=== PATIENT | male | born 1955 | race Caucasian/White ===

== ENCOUNTER 2023-04-30 20:34 | Emergency (ER) | payer BC, SELFPAY ==
--- NOTE | 2023-04-30 21:16 | PC.NURSE ---
called pt for triage at 2099, no answer. called pt again at 2114. no answer.
== END 2023-04-30 21:16 | disposition left against medical advice (07) ==
LOC: ANHED 21:21
PROVIDERS: PCP Internal Medicine
DX: Z53.21 Procedure and treatment not carried out due to patient leaving prior to being seen by health care provider (principal)
CPT/HCPCS: 99199

== ENCOUNTER 2023-04-30 22:34 | Emergency (ER) | payer BC, SELFPAY ==
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
[2023-04-30 22:56] VITALS: BP 124/96; PULSE 67; RESP 18; TEMP 36.6; O2SAT 97
[2023-05-01 01:47] VITALS: BP 143/103; PULSE 55; RESP 15; TEMP 36.8; O2SAT 98
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
[2023-05-01 03:19] VITALS: BP 137/97; PULSE 84; RESP 14; TEMP 36.6; O2SAT 98
== END 2023-05-01 03:20 | disposition home or self-care (01) ==
PROVIDERS: Emergency Provider Emergency Medicine; PCP Internal Medicine
DX: S61.412A Laceration without foreign body of left hand, initial encounter (principal); V18.4XXA Pedal cycle driver injured in noncollision transport accident in traffic accident, initial encounter; Y93.55 Activity, bike riding
CPT/HCPCS: 12001; 73130; 99283

== ENCOUNTER 2024-11-13 11:22 | Emergency (ER) | payer BC, SELFPAY ==
--- NOTE | ~2024-11-13 | US_ITS ---
EXAMINATION: US soft tissue LE RT DATE: 11/13/2024 13:14 INDICATION: Posterior right thigh pain. Injury. TECHNIQUE: Multiple grayscale and Doppler ultrasound images of the right lower limb were obtained. COMPARISON: None FINDINGS: There is no hematoma in the patient's area of concern in distal right posterior thigh. IMPRESSION: 1. No hematoma in the patient's area of concern in distal right posterior thigh. Reviewed, dictated and finalized at location A. CUTTER IMPRESSION: 1. No hematoma in the patient's area of concern in distal right posterior thigh .
[2024-11-13 11:34] VITALS: BP 146/95; TEMP 36.3
--- OUTSIDE RECORDS SUMMARY | 2024-11-13 12:42 | XMS_ITS | Encounter Summary ---
Author Organization [facility] Address [address] [place] [address] Care Team Providers Care Web Solutions Architect Name Role Phone Donald Guerrero MD Primary Care Provider Encounter Details Date Type Department Care Team (Late st Contact Info) Description 10/11/2007 Orders Only [facility] Primary Care - [address] [place] [address] Sarbjit Benson MD [address] [facility] [address] [place] [address] Social History Tobacco Use Types Packs/Day Years Used Date Smoking Tobacco: Never Assessed Sex and Gender Information Value Date Recorded Sex Assigned at Not on file Legal Sex Male 4:28 AM RESEARCH SPEC Gender Identity Not on file Sexual Orientation Not on file documented as of this encounter Progress Notes * Sarbjit eBnson MD - 02/14/2008 5:57 PM CDT TIME:09:37 am PATIENT`S HOME PHONE: PATIENT`S WORK PHONE: PATIENT`S INSURANCE: [facility] WHO TOOK THE CALL: Rosa Maria Dyer W GENERAL INFORMATION PATIENT STATUS: Established Patient. LAST VISIT: 06/13/07 PCP: sofia. ALTERNATIVE PHONE NUMBER: [phone] WHO CALLED: Patient called. CURRENT ALLERGY LIST: [facility] NUMBER:[phone] PROBLEMS: CONGESTION: Patient complains of chest congestion. thick & discolored, low grade temp COUGH:The symptoms began approximately 4 days ago. SECTION 1: REQUESTED ACTION w 10/11/07 at 09:40 am: MEDICATION REQUEST: wants rx................SS DOCTOR`S RESPONSE: cheryl 10/11/07 at 10:11 am MEDICATIONS: Call in to Pharmacy ZITHROMAX Z-AGUSTÍN ORAL TABLET 250 MG, as directed, 1 Dispensed, status: NEW PRESCRIPTION, 10/11/2007. FINAL ACTION: frankw 10/11/07 at 12:57 pm Spoke with patient 10/11/07 at 12:57 pm. Called pharmacy at 10/11/07 at 12:57 pm. SS Electronically Signed by: Rosa Maria Dyer on Thursday, October 11, 2007 documented in this encounter Plan of Treatment Upcoming Encounters Date Type Department Care Team (Late st Contact Info) Description 11/27/2024 1:00 PM RESEARCH SPEC Office Visit [facility] [address] [facility] [address] [place] [id number] Yee Banegas NP [address] [facility] [address] [place] [address] 03/08/2025 12:45 PM CDT Office Visit [facility] - [facility] [address] [facility] [address] [place] [address] Kevin Ashley MD [address] [facility] [address] [place], [place] [id number] documented as of this encounter Visit Diagnoses Not on filedocumented in this encounter Care Teams Web Solutions Architect Relationship Specialty Start Date End Date Donald Guerrero MD [address] [place] [address]. [address] [place] [address] PCP - General Internal Medicine 09/23/20 documented as of this encounter
--- OUTSIDE RECORDS SUMMARY | 2024-11-13 12:42 | XMS_ITS | Encounter Summary ---
Author Organization [facility] Address 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 Gender Identity Not on file Sexual Orientation Not on file documented as of this encounter Plan of Treatment Upcoming Encounters Date Type Department Care Team (Late st Contact Info) Description 11/27/2024 1:00 PM FORMULATOR COMPOUNDER Office Visit [facility] [address] [place] [address] Yee Banegas NP [address] [facility] [address] [place] [address] 03/08/2025 12:45 PM CDT Office Visit [facility] Heart [facility] - [facility] [address] [place] [address] Kevin Ashley MD [address] [facility] [address] [place] [address] documented as of this encounter Visit Diagnoses Not on filedocumented in this encounter Care Teams Rf Technician Relationship Specialty Start Date End Date Donald Guerrero MD [address] [place] [address] [address] [place] [address] PCP - General Internal Medicine 09/23/20 documented as of this encounter
--- OUTSIDE RECORDS SUMMARY | 2024-11-13 12:42 | XMS_ITS | Encounter Summary ---
Author Organization [facility] Address [address] [place] [address] Care Team Providers Care Field Control Inspector Name Role Phone Donald Guerrero MD Primary Care Provider Reason for Visit * Reason Comments Med Refill Encounter Details Date Type Department Care Team (Late st Contact Info) Description 11/13/2024 Refill [facility] Orthopedic Surgery at the [facility] [address] [place] [address] Kenrick Lemon PA-C [address] [place], [place] [id number] Social History Tobacco Use Types Packs/Day Years Used Date Smoking Tobacco: Never Passive Smoke Exposure: Never Smokeless Tobacco: Never Alcohol Use Standard Drinks/Week Comments Yes 7 (1 standard drink = 0.6 oz pur e alcohol) 1-2 beers/day Feeling Safe Answer Date Recorded Are you in a relationship wi th someone who hurts you emotionally and/or physically? No 12/03/2022 Food Insecurity Answer Date Recorded Social/Environmental Concerns No concerns Transportation Needs Answer Date Record ed Social/Environmental Concerns No concerns Housing Stability Answer Date Recorded Social/Environmental Concerns No concerns Utility Needs Answer Date Recorded Social/Environmental Concerns No concerns Sex and Gender Information Value Date Recorded Sex Assigned at Not on file Legal Sex Male 4:28 AM MOVIE ACTOR Gender Identity Not on file Sexual Orientation Not on file Occupation Industry Job Start Date Job End Date Not on file Not on file Not on file Not on file documented as of this encounter Plan of Treatment Upcoming Encounters Date Type Department Care Team (Late st Contact Info) Description 11/27/2024 1:00 PM MOVIE ACTOR Office Visit [facility] [place] [facility] [place] [place] [address] [facility] [address] [place] [address] Yee Banegas, IGOR [address] [facility] [address] [place] [address] 03/08/2025 12:45 PM CDT Office Visit [facility] [place] [facility] [place] [address] [facility] [address] [place] [address] Kevin Ashley MD [address] [facility] [address] [place] [address] documented as of this encounter Visit Diagnoses Not on filedocumented in this encounter Care Teams Field Control Inspector Relationship Specialty Start Date End Date Donald Guerrero MD [address] [place] [address]. [address] [place] [address] PCP - General Internal Medicine 09/23/20 documented as of this encounter
--- OUTSIDE RECORDS SUMMARY | 2024-11-13 12:42 | XMS_ITS | Encounter Summary ---
Author Organization [facility] Address [address] [place] [address] Care Team Providers Care Head Refrigeration Engineer Name Role Phone Donald Guerrero MD Primary Care Provider Reason for Visit * Reason Comments Med Refill Encounter Details Date Type Department Care Team (Late st Contact Info) Description 11/13/2024 Refill [facility] Heart and Vascular At [place] [address] [facility] [address] [place] [address] Kevin Ashley MD [facility] [address] [facility] [address] [place], [place] [id number] Social History Tobacco Use Types Packs/Day Years [...] on file Legal Sex Male 4:28 AM PHOTO TECHNICIAN Gender Identity Not on file Sexual Orientation Not on file Occupation Industry Job Start Date Job End Date Not on file Not on file Not on file Not on file documented as of this encounter Plan of Treatment Upcoming Encounters Date Type Department Care Team (Late st Contact Info) Description 11/27/2024 1:00 PM PHOTO TECHNICIAN Office Visit [facility] Primary Care - [facility] [address] [facility] [address] [place] [address] Yee Banegas NP [address] [facility] [address] [place] [address] 03/08/2025 12:45 PM CDT Office Visit [facility] Heart and Vascular - [facility] [address] [facility] [address] [place] [address] Kevin Ashley MD [address] [facility] [address] [place] [address] documented as of this encounter Visit Diagnoses Not on filedocumented in this encounter Care Teams Head Refrigeration Engineer Relationship Specialty Start Date End Date Donald Guerrero MD [address] [facility] [place] [address] PCP - General Internal Medicine 09/23/20 documented as of this encounter
--- OUTSIDE RECORDS SUMMARY | 2024-11-13 12:42 | XMS_ITS | Encounter Summary ---
Author Organization [facility] Address [address] [place] [address] Care Team Providers Care Centrifugal Casting Machine Operator Name Role Phone Donald Guerrero MD Primary Care Provider Encounter Details Date Type Department Care Team (Late st Contact Info) Description 09/03/1998 Outpatient Historical [facility] [address] [facility] [address] [place] [address] Armando Murdock MD NO ADDRESS ON FILE Social History Tobacco Use Types Packs/Day Years Used Date Smoking Tobacco: Never Assessed Sex and Gender Information Value Date Recorded Sex Assigned at Not on file Legal Sex Male 4:28 AM HOME HEALTH ASSISTANT Gender Identity Not on file Sexual Orientation Not on file documented as of this encounter Plan of Treatment Upcoming Encounters Date Type Department Care Team (Late st Contact Info) Description 11/27/2024 1:00 PM HOME HEALTH ASSISTANT Office Visit [facility] [address] [place] [address] Yee Banegas NP [address] [facility] [address] [place] [address] 03/08/2025 12:45 PM CDT Office Visit [facility] Heart and Vascular - [facility] [address] [place] [address] Kevin Ashley MD [address] [facility] [address] [place] [address] documented as of this encounter Visit Diagnoses Not on filedocumented in this encounter Care Teams Centrifugal Casting Machine Operator Relationship Specialty Start Date End Date Donald Guerrero MD [address] [place] [address] [address] [place] [address] PCP - General Internal Medicine 09/23/20 documented as of this encounter
--- OUTSIDE RECORDS SUMMARY | 2024-11-13 12:42 | XMS_ITS | Encounter Summary ---
Author Organization [facility] Address [address] [place] [address] Care Team Providers Care Clinical Trials Data Coordinator Name Role Phone Donald Guerrero MD Primary Care Provider Encounter Details Date Type Department Care Team (Late st Contact Info) Description 08/07/2007 Orders Only [facility] Primary Care - [address] [place] [address] Sarbjit Benson MD [address] [facility] [address] [place] [address] Social History Tobacco Use Types Packs/Day Years Used Date Smoking Tobacco: Never Assessed Sex and Gender Information Value Date Recorded Sex Assigned at Not on file Legal Sex Male 4:28 AM OUT OF SCHOOL HOURS CARE WORKER Gender Identity Not on file Sexual Orientation Not on file documented as of this encounter Progress Notes * Sarbjit Benson MD - 02/15/2008 4:26 PM CDT TIME:10:02 am PATIENT`S HOME PHONE: PATIENT`S WORK PHONE: PATIENT`S INSURANCE: [email or web address] [facility] WHO TOOK THE CALL: Rosa Maria Dyer W GENERAL INFORMATION PATIENT STATUS: Established Patient. LAST VISIT: 06-13-07 PCP: Marcelino WHO CALLED: Patient called. ALTERNATIVE PHONE NUMBER: [phone] CURRENT ALLERGY LIST: [facility] PHARM[facility]Y NUMBER: [phone] PROBLEM LIST: Patient complains of. erectile dysfunction. SECTION 1: REQUESTED ACTION isidra 08/07/07 at 10:04 am: would like to try rx. MEDICATION REQUEST: MEDICATION REQUEST: Patient requests a refill. MEDICATIONS: NORVASC ORAL TABLET 5 MG, 1 Every Day, 90 Dispensed, 3 Fills, status: CONTINUED, 08/07/2007. ZOCOR ORAL TABLET 20 MG, 1 Every Day At Bedtime, 90 Dispensed, 3 Fills, status: CONTINUED, 08/07/2007. in hub for signature , mail to pt..............Rosa Maria DOCTOR`S RESPONSE: cheryl 08/07/07 at 10:09 am signed MEDICATIONS: NORVASC ORAL TABLET 5 MG, 1 Every Day, 90 Dispensed, 3 Fills, status: CONTINUED, 08/07/2007. VIAGRA ORAL TABLET 100 MG, 1/2 to 1 tab by mouth 30-60 minutes before sexual activity, 15 Dispensed, 3 Fills, status: NEW PRESCRIPTION, 08/07/2007. FINAL ACTION: haroon 08/07/07 at 01:27 pm Spoke with patient 08/07/07 at 01:27 pm. Called pharmacy at 08/07/07 at 01:27 pm. raul Electronically Signed by: Raul Clemente on Tuesday, August 07, 2007 * Sarbjit Benson MD - 02/15/2008 4:19 PM CDT TIME:03:01 pm PATIENT`S HOME PHONE: PATIENT`S WORK PHONE: PATIENT`S INSURANCE: [facility] WHO TOOK THE CALL: Raul Clemente GENERAL INFORMATION PATIENT STATUS: Established Patient. LAST VISIT: PCP: marcelino WHO CALLED: Pharmacy called. CURRENT ALLERGY LIST: [facility] PHARMACY NUMBER: [phone] SECTION 1: REQUESTED ACTION haroon 08/07/07 at 03:01 pm: MEDICATION REQUEST: [phone] MEDICATION REQUEST: Patient requests a refill. MEDICATIONS: VIAGRA ORAL TABLET 100 MG, 1/2 to 1 tab by mouth 30-60 minutes before sexual activity, 15 Dispensed, 3 Fills, status: NEW PRESCRIPTION, 08/07/2007. lf -----raul [facility] [id number], waiting on fax form pr form fxd pr FINAL ACTION: [email or web address] 08/10/07 at 04:00 pm Called pharmacy at 08/10/07 at 04:00 pm. med approved Electronically Signed by: Rosana Johnson on August documented in this encounter Plan of Treatment Upcoming Encounters Date Type Department Care Team (Late st Contact Info) Description 11/27/2024 1:00 PM OUT OF SCHOOL HOURS CARE WORKER Office Visit [facility] Primary Care - [facility] [address] [facility] [address] [place] [address] Yee Banegas NP [address] [facility] [address] [place] [address] 03/08/2025 12:45 PM CDT Office Visit [facility] Heart and Vascular - [facility] [place] [facility] [address] [facility] [address] [place] [address] Kevin Ashley MD [address] [facility] [address] [place] [address] documented as of this encounter Visit Diagnoses Not on filedocumented in this encounter Care Teams Clinical Trials Data Coordinator Relationship Specialty Start Date End Date Donald Guerrero MD [address] [facility] [place] [address] PCP - General Internal Medicine 09/23/20 documented as of this encounter
--- OUTSIDE RECORDS SUMMARY | 2024-11-13 12:42 | XMS_ITS | Encounter Summary ---
Author Organization [facility] Address [address] [place] [address] Care Team Providers Care Lap Machine Tender Name Role Phone Donald Guerrero MD Primary Care Provider Encounter Details Date Type Department Care Team (Late st Contact Info) Description 04/21/1999 Outpatient Historical [facility] [address] [facility] [address] [place] [address] Armando Murdock MD NO ADDRESS ON FILE Social History Tobacco Use Types Packs/Day Years Used Date Smoking Tobacco: Never Assessed Sex and Gender Information Value Date Recorded Sex Assigned at Not on file Legal Sex Male 4:28 AM COSMETIC MANAGER Gender Identity Not on file Sexual Orientation Not on file documented as of this encounter Plan of Treatment Upcoming Encounters Date Type Department Care Team (Late st Contact Info) Description 11/27/2024 1:00 PM COSMETIC MANAGER Office Visit [facility] [address] [place] [address] Yee Banegas NP [address] [facility] [address] [place] [address] 03/08/2025 12:45 PM CDT Office Visit [facility] Heart and Vascular - [facility] [address] [place] [address] Kevin Ashley MD [address] [facility] [address] [place] [address] documented as of this encounter Visit Diagnoses Not on filedocumented in this encounter Care Teams Lap Machine Tender Relationship Specialty Start Date End Date Donald Guerrero MD [address] [place] [address] [address] [place] [address] PCP - General Internal Medicine 09/23/20 documented as of this encounter
--- OUTSIDE RECORDS SUMMARY | 2024-11-13 12:42 | XMS_ITS | Encounter Summary ---
Author Organization [facility] Address [address] [place] [address] Care Team Providers Care Data Modeling Architect Name Role Phone Donald Guerrero MD Primary Care Provider Encounter Details Date Type Department Care Team (Late st Contact Info) Description 09/21/2002 Outpatient Historical [facility] [address] [facility] [address] [place] [address] Jayant Quesada Social History Tobacco Use Types Packs/Day Years Used Date Smoking Tobacco: Never Assessed Sex and Gender Information Value Date Recorded Sex Assigned at Not on file Legal Sex Male 4:28 AM INCOMING INSPECTOR Gender Identity Not on file Sexual Orientation Not on file documented as of this encounter Plan of Treatment Upcoming Encounters Date Type Department Care Team (Late st Contact Info) Description 11/27/2024 1:00 PM INCOMING INSPECTOR Office Visit [facility] [address] [place] [address] Yee Banegas NP [address] [facility] [address] [place] [address] 03/08/2025 12:45 PM CDT Office Visit [facility] Heart and Vascular - [facility] [address] [place] [address] Kevin Ashley MD [address] [facility] [address] [place] [address] documented as of this encounter Visit Diagnoses Not on filedocumented in this encounter Care Teams Data Modeling Architect Relationship Specialty Start Date End Date Donald Guerrero MD [address] [place] [address] [address] [place] [address] PCP - General Internal Medicine 09/23/20 documented as of this encounter
--- OUTSIDE RECORDS SUMMARY | 2024-11-13 12:42 | XMS_ITS | Encounter Summary ---
Author Organization [facility] Address [address] [place] [address] Care Team Providers Care Hose Sprayer Name Role Phone Donald Guerrero MD Primary Care Provider Encounter Details Date Type Department Care Team (Late st Contact Info) Description 02/02/2008 Outpatient Historical [address] [place] [address] Elda Mart MD [address] [place] [address] [place] [address] Social History Tobacco Use Types Packs/Day Years Used Date Smoking Tobacco: Never Assessed Sex and Gender Information Value Date Recorded Sex Assigned at Not on file Legal Sex Male 4:28 AM CNA PCT Gender Identity Not on file Sexual Orientation Not on file documented as of this encounter Plan of Treatment Upcoming Encounters Date Type Department Care Team (Late st Contact Info) Description 11/27/2024 1:00 PM CNA PCT Office Visit [facility] [address] [facility] [address] [place] [address] Yee Banegas NP [address] [facility] [address] [place] [address] 03/08/2025 12:45 PM CDT Office Visit [facility] Heart and Vascular - [facility] [address] [place] [address] Kevin Ashley MD [address] [facility] [address] [place] [address] documented as of this encounter Visit Diagnoses Not on filedocumented in this encounter Care Teams Hose Sprayer Relationship Specialty Start Date End Date Donald Guerrero MD [address] [place] [address] PCP - General Internal Medicine 09/23/20 documented as of this encounter
--- OUTSIDE RECORDS SUMMARY | 2024-11-13 12:42 | XMS_ITS | Encounter Summary ---
Author Organization [facility] Address [address] [place] [address] Care Team Providers Care Body Cleaner Name Role Phone Donald Guerrero MD Primary Care Provider Encounter Details Date Type Department Care Team (Late st Contact Info) Description 06/30/2000 Outpatient Historical [facility] [address] [facility] [address] [place] [address] Armando Murdock MD NO ADDRESS ON FILE Social History Tobacco Use Types Packs/Day Years Used Date Smoking Tobacco: Never Assessed Sex and Gender Information Value Date Recorded Sex Assigned at Not on file Legal Sex Male 4:28 AM PHOTOENGRAVING SUPERVISOR Gender Identity Not on file Sexual Orientation Not on file documented as of this encounter Plan of Treatment Upcoming Encounters Date Type Department Care Team (Late st Contact Info) Description 11/27/2024 1:00 PM PHOTOENGRAVING SUPERVISOR Office Visit [facility] [address] [place] [address] Yee Banegas NP [address] [facility] [address] [place] [address] 03/08/2025 12:45 PM CDT Office Visit [facility] Heart and Vascular - [facility] [address] [place] [address] Kevin Ashley MD [address] [facility] [address] [place] [address] documented as of this encounter Visit Diagnoses Not on filedocumented in this encounter Care Teams Body Cleaner Relationship Specialty Start Date End Date Donald Guerrero MD [address] [place] [address] [address] [place] [address] PCP - General Internal Medicine 09/23/20 documented as of this encounter
--- OUTSIDE RECORDS SUMMARY | 2024-11-13 12:42 | XMS_ITS | Encounter Summary ---
Author Organization [facility] Address [address] [place] [address] Care Team Providers Care Line Repairer Tower Name Role Phone Donald Guerrero MD Primary Care Provider Encounter Details Date Type Department Care Team (Late st Contact Info) Description 02/02/2008 Outpatient Historical [facility] Primary Care - [address] [place] [address] Elda Mart MD [address] [place] [address] [place] [address] Social History Tobacco Use Types Packs/Day Years Used Date Smoking Tobacco: Never Assessed Sex and Gender Information Value Date Recorded Sex Assigned at Not on file Legal Sex Male 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 Gender Identity Not on file Sexual Orientation Not on file documented as of this encounter Last Filed Vital Signs Vital Sign Reading Time Taken Comments Blood Pressure 130/100 02/02/2008 1:30 PM CDT Pulse - - Temperature 36.4 C (97.5 F) 02/02/2008 1:30 PM CDT Respiratory Rate - - Oxygen Saturation - - Inhaled Oxygen Concentration - - Weight 77.1 kg (170 lb) 02/02/2008 1:30 PM CDT Height - - Body Mass Index - - documented in this encounter Plan of Treatment Upcoming Encounters Date Type Department Care Team (Late st Contact Info) Description 11/27/2024 1:00 PM HELICOPTER UTILITY AIRCREWMAN Office Visit [facility] Primary Care - [facility] [address] [place] [address] Yee Banegas NP [address] [place] [address] 03/08/2025 12:45 PM CDT Office Visit [facility] Heart and Vascular - [facility] [address] [place] [address] Kevin Ashley MD [address] [facility] [address] [place] [address] documented as of this encounter Visit Diagnoses Not on filedocumented in this encounter Care Teams Line Repairer Tower Relationship Specialty Start Date End Date Donald Guerrero MD [address] [place] [address] PCP - General Internal Medicine 09/23/20 documented as of this encounter
--- OUTSIDE RECORDS SUMMARY | 2024-11-13 12:42 | XMS_ITS | Encounter Summary ---
Author Organization [facility] Address 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 Gender Identity Not on file Sexual Orientation Not on file documented as of this encounter Plan of Treatment Upcoming Encounters Date Type Department Care Team (Late st Contact Info) Description 11/27/2024 1:00 PM GAS APPLIANCE INSTALLER Office Visit [facility] [address] [place] [address] Yee Banegas NP [address] [facility] [address] [place] [address] 03/08/2025 12:45 PM CDT Office Visit [facility] [address] [place] [address] Kevin Ashley MD [address] [facility] [address] [place] [address] documented as of this encounter Visit Diagnoses Not on filedocumented in this encounter Care Teams Armor Reconnaissance Vehicle Driver Relationship Specialty Start Date End Date Donald Guerrero MD [address] [place] [address] [address] [place] [address] PCP - General Internal Medicine 09/23/20 documented as of this encounter
--- OUTSIDE RECORDS SUMMARY | 2024-11-13 12:42 | XMS_ITS | Encounter Summary ---
Author Organization [facility] Address [address] [place] [address] Care Team Providers Care Ear Muff Assembler Name Role Phone Donald Guerrero MD Primary Care Provider Encounter Details Date Type Department Care Team (Late st Contact Info) Description 03/08/2008 Outpatient Historical [facility], [address] Sabrjit Benson MD [address] [facility] [address] [place] [address] Essential Hypertension, Benign Social History Tobacco Use Types Packs/Day Years Used Date Smoking Tobacco: Never Alcohol Use Standard Drinks/Week Comments Not Asked 0 (1 standard drink = 0.6 oz pur e alcohol) Sex and Gender Information Value Date Recorded Sex Assigned at Not on file Legal Sex Male 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 METAL 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 Gender Identity Not on file Sexual Orientation Not on file documented as of this encounter Plan of Treatment Upcoming Encounters Date Type Department Care Team (Late st Contact Info) Description 11/27/2024 1:00 PM METAL 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 Office Visit [facility] Primary Care - [facility] [address] [facility] [address] [place] [address] Yee Banegas NP [address] [facility] [address] [place] [address] 03/08/2025 12:45 PM CDT Office Visit [facility] Heart and Vascular - [facility] [address] [place] [address] Kevin Ashley MD [address] [facility] [address] [place] [address] documented as of this encounter Visit Diagnoses Diagnosis Essential hypertension, benign documented in this encounter Care Teams Ear Muff Assembler Relationship Specialty Start Date End Date Donald Guerrero MD [address] [place] [address] PCP - General Internal Medicine 09/23/20 documented as of this encounter
--- OUTSIDE RECORDS SUMMARY | 2024-11-13 12:42 | XMS_ITS | Encounter Summary ---
Author Organization [facility] Address [address] [place] [address] Care Team Providers Care Farm Truck Driver Name Role Phone Donald Guerrero MD Primary Care Provider Encounter Details Date Type Department Care Team (Late st Contact Info) Description 04/16/2002 Outpatient Historical [facility] [address] [facility] [address] [place] [address] Jayant Quesada Social History Tobacco Use Types Packs/Day Years Used Date Smoking Tobacco: Never Assessed Sex and Gender Information Value Date Recorded Sex Assigned at Not on file Legal Sex Male 4:28 AM DIETARY AID Gender Identity Not on file Sexual Orientation Not on file documented as of this encounter Plan of Treatment Upcoming Encounters Date Type Department Care Team (Late st Contact Info) Description 11/27/2024 1:00 PM DIETARY AID Office Visit [facility] [address] [place] [address] Yee Banegas NP [address] [facility] [address] [place] [address] 03/08/2025 12:45 PM CDT Office Visit [facility] Heart and Vascular - [facility] [address] [place] [address] Kevin Ashley MD [address] [facility] [address] [place] [address] documented as of this encounter Visit Diagnoses Not on filedocumented in this encounter Care Teams Farm Truck Driver Relationship Specialty Start Date End Date Donald Guerrero MD [address] [place] [address] [address] [place] [address] PCP - General Internal Medicine 09/23/20 documented as of this encounter
--- OUTSIDE RECORDS SUMMARY | 2024-11-13 12:42 | XMS_ITS | Encounter Summary ---
Author Organization [facility] Address [address] [place] [address] Care Team Providers Care Customer Service Representative Name Role Phone Donald Guerrero MD Primary Care Provider Encounter Details Date Type Department Care Team (Latest Contact Info) Description 03/14/2002 Outpatient Historical [facility] Armando Murdock MD NO ADDRESS ON FILE CERVICAL SPONDYLOSIS (Primary Dx) Social History Tobacco Use Types Packs/Day Years Used Date Smoking Tobacco: Never Assessed Sex and Gender Information Value Date Recorded Sex Assigned at Not on file Legal Sex Male 4:28 AM INTELLIGENCE APPLICATIONS Gender Identity Not on file Sexual Orientation Not on file documented as of this encounter Plan of Treatment Upcoming Encounters Date Type Department Care Team (Late st Contact Info) Description 11/27/2024 1:00 PM INTELLIGENCE APPLICATIONS Office Visit [facility] Primary Care - [facility] [address] [facility] [address] [place] [address] Yee Banegas NP [address] [facility] [address] [place] [address] 03/08/2025 12:45 PM CDT Office Visit [facility] Heart and Vascular - [facility] [address] [facility] [address] [place] [address] Kevin Ashley MD [address] [facility] [address] [place] [address] documented as of this encounter Visit Diagnoses Diagnosis Cervical spondylosis without myelopathy- Primary documented in this encounter Care Teams Customer Service Representative Relationship Specialty Start Date End Date Donald Guerrero MD [address] [facility] [place] [address] PCP - General Internal Medicine 09/23/20 documented as of this encounter
--- OUTSIDE RECORDS SUMMARY | 2024-11-13 12:42 | XMS_ITS | Encounter Summary ---
Author Organization [facility] Address [address] [place] [address] Care Team Providers Care Business Computers Teacher Name Role Phone Donald Guerrero MD Primary Care Provider Encounter Details Date Type Department Care Team (Late st Contact Info) Description 01/14/2003 Outpatient Historical [facility] [address] [facility] [address] [place] [address] Jayant Quesada Social History Tobacco Use Types Packs/Day Years Used Date Smoking Tobacco: Never Assessed Sex and Gender Information Value Date Recorded Sex Assigned at Not on file Legal Sex Male 4:28 AM PERFECT BINDER SETTER Gender Identity Not on file Sexual Orientation Not on file documented as of this encounter Plan of Treatment Upcoming Encounters Date Type Department Care Team (Late st Contact Info) Description 11/27/2024 1:00 PM PERFECT BINDER SETTER Office Visit [facility] [address] [place] [address] Yee Banegas NP [address] [facility] [address] [place] [address] 03/08/2025 12:45 PM CDT Office Visit [facility] Heart and Vascular - [facility] [address] [place] [address] Kevin Ashley MD [address] [facility] [address] [place] [address] documented as of this encounter Visit Diagnoses Not on filedocumented in this encounter Care Teams Business Computers Teacher Relationship Specialty Start Date End Date Donald Guerrero MD [address] [place] [address] [address] [place] [address] PCP - General Internal Medicine 09/23/20 documented as of this encounter
--- OUTSIDE RECORDS SUMMARY | 2024-11-13 12:42 | XMS_ITS | Encounter Summary ---
Author Organization [facility] Address [address] [place] [address] Care Team Providers Care Food Analyst Name Role Phone Doanld Guerrero MD Primary Care Provider Encounter Details Date Type Department Care Team (Late st Contact Info) Description 06/11/2008 Outpatient Historical [facility] Troy Lizarraga MD [address] [place] [address] [place] [address] Social History Tobacco Use Types Packs/Day Years Used Date Smoking Tobacco: Never Alcohol Use Standard Drinks/Week Comments Not Asked 0 (1 standard drink = 0.6 oz pur e alcohol) Sex and Gender Information Value Date Recorded Sex Assigned at Not on file Legal Sex Male 4:28 AM IRONWORKER FOREMAN Gender Identity Not on file Sexual Orientation Not on file documented as of this encounter Plan of Treatment Upcoming Encounters Date Type Department Care Team (Late st Contact Info) Description 11/27/2024 1:00 PM IRONWORKER FOREMAN Office Visit [facility] Primary Care - [facility] [address] [facility] [address] [place] [address] Yee Banegas NP [address] [facility] [address] [place] [address] 03/08/2025 12:45 PM CDT Office Visit [facility] Heart [facility] Vascular - [facility] [address] [facility] [address] [place] [address] Kevin Ashley MD [address] [facility] [address] [place] [address] documented as of this encounter Procedures Procedure Name Priority Date/Time Associated Diagnosis Comments PATHOLOGY Routine 06/11/2008 12:20 PM CDT documented in this encounter Results * PATHOLOGY (06/11/2008 12:20 PM CDT) FINAL REPORT [facility] [place] [address] [place], [place] [address] Patient: JOHNNY MATTHEW : 1955 Procedure Date: 06/11/2008 Accession Date: 06/11/2008 Case No: [id number] Ordering Dr: TROY LIZARRAGA Case types AW, BW, FW, NW and SH are performed by [facility] [place], [place], [place] SURGICAL PATHOLOGY & NON-GYNECOLOGIC CYTOPATHOLOGY REPORT DIAGNOSIS LARGE INTESTINE, ASCENDING, BIOPSY: - NO PATHOLOGIC FINDINGS. RECTUM, BIOPSY: - NO PATHOLOGIC FINDINGS. Specimen Description: (1) Ascending colon fold biopsy; (2) rectal polyp. Operative Procedure: Colonoscopy. Patient Information/Histo ry/Diagnosis: (1) Nodular fold ascending colon rule out polyp; (2) Colon polyp(s). Adenomatous vs. hyperplastic vs. other. Gross: The specimen is received in two containers, each labeled Johnny Matthew. Received in the first container and labeled ascending colon fold are four pieces of celestin tissue ranging from 0.2 to 0.3 cm in greatest dimension. The entire specimen is submitted in cassette A1. Received in the second container and labeled rectal polyp is a single celestin tissue measuring 0.2 cm in greatest dimension. The entire specimen is submitted in cassette B1. LWJoya/BE 06.11.2008 05:44 pm Microscopic: Received are slides labeled [id number], Johnny Matthew. Histological examination of the specimen labeled ascending colon fold demonstrates multiple fragments of colonic mucosa showing no histologic abnormalities. Histological examination of the specimen labeled rectal polyp demonstrates a single fragment of colonic mucosa showing mild crypt distortion but no other histologic abnormalities. A polyp forming lesion is not identified. Multiple levels were examined. STM/JONATHAN 06.12.2008 11:30 am Staging Form: No. ELECTRONIC SIGNATURE FOR YADI PAN M.D.- 06/12/08 03:59 pm INTERFACE SYSTEM 06/11/2008 12:2 0 PM CDT us Troy Lizarraga MD PATHOLOGY/CYTOLOGY ORDERABLE S Final Result INTERFACE SYSTEM Refer to clinic/hospital department documented in this encounter Visit Diagnoses Not on filedocumented in this encounter Care Teams Food Analyst Relationship Specialty Start Date End Date Donald Guerrero MD [address] [facility] [place] [address] PCP - General Internal Medicine 09/23/20 documented as of this encounter
--- OUTSIDE RECORDS SUMMARY | 2024-11-13 12:42 | XMS_ITS | Encounter Summary ---
Author Organization [facility] Address [address] [place] [address] Care Team Providers Care Educational Program Assistant Name Role Phone Donald Guerrero MD Primary Care Provider Encounter Details Date Type Department Care Team (Latest Contact Info) Description 02/02/2008 Outpatient Historical [facility] Jorge Keyes MD [address] [facility] [address] [place] [address] Injury, Other and Unspecified, Knee, Leg, Ankle, and Foot Social History Tobacco Use Types Packs/Day Years Used Date Smoking Tobacco: Never Assessed Sex and Gender Information Value Date Recorded Sex Assigned at Not on file Legal Sex Male 4:28 AM CATH LAB RADIOLOGY TECHNICIAN Gender Identity Not on file Sexual Orientation Not on file documented as of this encounter Plan of Treatment Upcoming Encounters Date Type Department Care Team (Late st Contact Info) Description 11/27/2024 1:00 PM CATH LAB RADIOLOGY TECHNICIAN Office Visit [facility] Primary Care - [facility] [address] [facility] [address] [place] [address] Yee Banegas NP [address] [facility] [address] [place] [address] 03/08/2025 12:45 PM CDT Office Visit [facility] Heart and Vascular - [facility] [address] [place] [address] Kevin Ashley MD [address] [facility] [address] [place] [address] documented as of this encounter Procedures Procedure Name Priority Date/Time Associated Diagnosis Comments XR TIBIA AND FIBULA 2 VW LEFT Routine 02/02/2008 2:19 PM CDT documented in this encounter Results * XR TIBIA AND FIBULA 2 VW LEFT (02/02/2008 2:19 PM CDT) Anatomical Region Laterality Modality Lower Extremity Other 02/02/2008 2:19 PM CDT Narrative 02/03/2008 2:57 PM CDT [address] [address] Admit Date: 02/02/2008 JOHNNY MATTHEW Sex: M Admit Prov: JORGE KEYES Date: 1955 Primary Care Prov: JORGE KEYES CMRN: [id number] Room: [facility] SSN: [id number] IMAGING SERVICES Ordering Prov: N/A Accession Number: [id number] Interpretation Exam: Left tibia and fibula 2 views 02/02/2008 History: Leg injury. Patient with leg pain. Findings: No fracture, dislocation, focal bone production or destruction is identified. Impression: Negative. . Dictated by: AMANDEEP DUFFY 02/02/2008 15:31 Electronically signed by: AMANDEEP DUFFY 02/03/2008 14:57 Transcribed: 02/02/2008 17:11 AMK Procedure Note Amandeep Duffy - 02/03/[address] [address] Admit Date: 02/02/2008 JOHNNY MATTHEW Sex: M Admit Prov: JORGE KEYES Date:1955 Primary Care Prov: MICHAEL KEYESA CMRN: [id number] Room: [facility] SSN: [id number] IMAGING SERVICES Ordering Prov: N/A Interpretation Exam: Left tibia and fibula 2 views 02/02/2008 History: Leg injury. Patient with leg pain. Findings: No fracture, dislocation, focal bone production ordestruction is identified. Impression: Negative. . Dictated by: AMANDEEP DUFFY 02/02/2008 15:31 Electronically signed by: AMANDEEP DUFFY 02/03/2008 14:57 Transcribed: 02/02/2008 17:11 AMK Jorge Keyes MD DIAGNOSTIC IMAGING ORDERABLE S Final Result documented in this encounter Visit Diagnoses Diagnosis Injury, other and unspecified, knee, leg, ankle, and foot documented in this encounter Care Teams Educational Program Assistant Relationship Specialty Start Date End Date Donald Guerrero MD [address] [facility] [address] [place] [address] PCP - General Internal Medicine 09/23/20 documented as of this encounter
--- OUTSIDE RECORDS SUMMARY | 2024-11-13 12:42 | XMS_ITS | Encounter Summary ---
Author Organization [facility] Address [address] [place] [address] Care Team Providers Care Water Tanker Driver Name Role Phone Donald Guerrero MD Primary Care Provider Encounter Details Date Type Department Care Team (Late st Contact Info) Description 05/10/2000 Outpatient Historical [facility] [address] [facility] [address] [place] [address] Armando Murdock MD NO ADDRESS ON FILE Social History Tobacco Use Types Packs/Day Years Used Date Smoking Tobacco: Never Assessed Sex and Gender Information Value Date Recorded Sex Assigned at Not on file Legal Sex Male 4:28 AM LOSS PREVENTION AND SAFETY MANAGER Gender Identity Not on file Sexual Orientation Not on file documented as of this encounter Plan of Treatment Upcoming Encounters Date Type Department Care Team (Late st Contact Info) Description 11/27/2024 1:00 PM LOSS PREVENTION AND SAFETY MANAGER Office Visit [facility] [address] [place] [address] Yee Banegas NP [address] [facility] [address] [place] [address] 03/08/2025 12:45 PM CDT Office Visit [facility] [address] [place] [address] Kevin Ashley MD [address] [facility] [address] [place] [address] documented as of this encounter Visit Diagnoses Not on filedocumented in this encounter Care Teams Water Tanker Driver Relationship Specialty Start Date End Date Donald Guerrero MD [address] [place] [address] [address] [place] [address] PCP - General Internal Medicine 09/23/20 documented as of this encounter
--- OUTSIDE RECORDS SUMMARY | 2024-11-13 12:42 | XMS_ITS | Encounter Summary ---
Author Organization [facility] Address [address] [place] [address] Care Team Providers Care Press Secretary Name Role Phone Donald Guerrero MD Primary Care Provider Encounter Details Date Type Department Care Team (Latest Contact Info) Description 01/14/2003 Outpatient Historical [facility] Jayant Quesada FINGER INJURY NOS (Primary Dx) Social History Tobacco Use Types Packs/Day Years Used Date Smoking Tobacco: Never Assessed Sex and Gender Information Value Date Recorded Sex Assigned at Not on file Legal Sex Male 4:28 AM LEAD GENERATION REPRESENTATIVE Gender Identity Not on file Sexual Orientation Not on file documented as of this encounter Plan of Treatment Upcoming Encounters Date Type Department Care Team (Late st Contact Info) Description 11/27/2024 1:00 PM LEAD GENERATION REPRESENTATIVE Office Visit [facility] Primary [facility] - [facility] [address] [facility] [address] [place] [address] Yee Banegas NP [address] [facility] [address] [place] [address] 03/08/2025 12:45 PM CDT Office Visit [facility] - [facility] [address] [facility] [address] [place] [address] Kevin Ashley MD [address] [facility] [address] [place] [address] documented as of this encounter Visit Diagnoses Diagnosis Injury, other and unspecified, finger- Primary documented in this encounter Care Teams Press Secretary Relationship Specialty Start Date End Date Donald Guerrero MD [address] [place] [address] PCP - General Internal Medicine 09/23/20 documented as of this encounter
--- OUTSIDE RECORDS SUMMARY | 2024-11-13 12:42 | XMS_ITS | Encounter Summary ---
Author Organization [facility] Address [address] [place] [address] Care Team Providers Care Head Of Strategy Name Role Phone Donald Guerrero MD Primary Care Provider Encounter Details Date Type Department Care Team (Late st Contact Info) Description 04/28/1999 Outpatient Historical [facility] Armando Murdock MD NO ADDRESS ON FILE Lumbago (Primary Dx) Social History Tobacco Use Types Packs/Day Years Used Date Smoking Tobacco: Never Assessed Sex and Gender Information Value Date Recorded Sex Assigned at Not on file Legal Sex Male 4:28 AM POWER CHISEL OPERATOR Gender Identity Not on file Sexual Orientation Not on file documented as of this encounter Plan of Treatment Upcoming Encounters Date Type Department Care Team (Late st Contact Info) Description 11/27/2024 1:00 PM POWER CHISEL OPERATOR Office Visit [facility] Primary Care - [facility] [address] [place] [address] Yee Banegas NP [address] [facility] [address] [place] [address] 03/08/2025 12:45 PM CDT Office Visit [facility] - [facility] [address] [place] [address] Kevin Ashley MD [address] [facility] [address] [place] [address] documented as of this encounter Visit Diagnoses Diagnosis Lumbago- Primary documented in this encounter Care Teams Head Of Strategy Relationship Specialty Start Date End Date Donald Guerrero MD [address] [facility] [place] [address] PCP - General Internal Medicine 09/23/20 documented as of this encounter
--- OUTSIDE RECORDS SUMMARY | 2024-11-13 12:42 | XMS_ITS | Clinical Summary ---
Author Organization [facility] Address [address] [place] [address] Care Team Providers Care Data Entry Machine Operator Name Role Phone Donald Guerrero MD Primary Care Provider Allergies Active Allergy Reactions Criticality Noted Date Comments No Known Allergies 07/27/2005 Medications triamcinolone acetonide (KENALOG) 0.1 % Cream APPLY TO AFFECTED AREA TWICE A DAY 454 Gram 2 021 Active carvediloL (COREG) 12.5 mg tablet take 1 tablet by mouth twice a day with food 180 Tablet 3 024 Active rosuvastatin (CRESTOR) 10 mg tablet take 1 tablet by mouth everyday at bedtime 90 Tablet 2 024 Active ergocalciferol (VITAMIN D2) 50,000 unit capsule take 1 capsule by mouth one time per week 12 Capsule 1 024 Active diclofenac sodium (VOLTAREN) 1 % gelIndications: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 100 Gram 3 024 Active zolpidem (AMBIEN CR) 6.25 mg Controlled Release tabletIndications: Insomnia, unspecified type TAKE 1 TABLET BY MOUTH AT BEDTIME NEEDED FOR INSOMNIA 30 Tablet 1 024 Active meloxicam (MOBIC) 15 mg tabletIndications: Osteoarthritis, localized, shoulder, left TAKE 1 TABLET BY MOUTH EVERY DAY 30 Tablet 3 024 Active Entresto 49-51 mg Tablet TAKE 1 TABLET BY MOUTH TWICE A DAY 60 Tablet 025 Active tadalafiL (CIALIS) 20 mg tabletIndications: Erectile dysfunction, unspecified erectile dysfunction type take 1 tablet by mouth every day as needed for erectile dysfunction 14 Tablet 2 025 Active traZODone (DESYREL) 100 mg tabletIndications: Insomnia, unspecified type TAKE 2 TABLETS BY MOUTH AT BEDTIME 200 Tablet 025 Active traZODone (DESYREL) 100 mg tabletIndications: Insomnia, unspecified type TAKE 2 TABLETS BY MOUTH AT BEDTIME 180 Tablet 1 024 2024 Discontinued(R eorder) tadalafiL (CIALIS) 20 mg tabletIndications: Erectile dysfunction, unspecified erectile dysfunction type TAKE 1 TABLET BY MOUTH EVERY DAY NEEDED FOR ERECTILE DYSFUNCTION 14 Tablet 2 024 2024 Discontinued(R eorder) Entresto 49-51 mg Tablet TAKE 1 TABLET BY MOUTH TWICE A DAY 60 Tablet 024 2024 Discontinued Active Problems Patient Care Coordination No te Formatting of this note migh t be different from the original. Brush Maker- Dr. Ashley- (Yo) Kevin Ashley MD- [facility] ( [facility]) Problem Noted Date Diagnosed Date Left Shoulder Osteoarthritis 01/26/2024 Right Elbow Osteoarthritis 01/26/2024 Left Elbow Osteoarthritis 01/26/2024 Chronic systolic HF (heart failure) 07/29/2023 PAF (paroxysmal atrial fibrillation) 07/10/2021 History of CVA (cerebrovascular accident) 2019 Secondary cardiomyopathy 09/06/2020 Pseudoarthrosis of lumbar spine 09/04/2020 Primary osteoarthritis of left shoulder 05/20/20 17 History of subacute bacterial endocarditis 03/21 Chronic left shoulder pain 01/18/2017 S/P AVR (aortic valve replacement) 08/30/2016 S/P ascending aortic aneurysm repair 08/30/2016 Normocytic anemia 08/30/2016 Heart murmur, aortic 08/30/2016 HTN (hypertension) 04/02/2014 Aortic valve regurgitation 04/02/2014 Lumbar stenosis with neurogenic claudication Lumbar spondylosis 07/30/2011 Lumbar disc herniation 07/30/2011 Erectile dysfunction 02/15/2011 Backache, unspecified 03/16/2007 Essential hypertension, benign 07/27/2005 Mixed hyperlipidemia 07/27/2005 History of lumbar fusion Propionibacterium infection Aortic valve endocarditis Resolved Problems Problem Noted Date Diagnosed Date Resolved Date Right inguinal hernia 11/16/20222022 Acute diarrhea 04/11/2017 09/23/2020 Preop cardiovascular exam 04/11/2017 Cryptogenic stroke 08/31/2016 3 Hyponatremia 08/30/2016 09/23/2020 High fever at home 08/30/2016 0 Sepsis 08/30/2016 09/23/2020 Acute right arterial ischemi c stroke, SCRAP METAL COLLECTOR (posterior cerebral artery) 07/13/2016 09/24/2021 Nocturia 05/26/2016 09/23/2020 Ascending aortic aneurysm 04/26/2014 Rash and other nonspecific skin eruption 05/07/2013 09/23/2020 Routine general medical exam ination at a health care facility 11/06/2012 09/23/2020 Injury, other and unspecifie d, knee, leg, ankle, and foot 02/02/2008 02/15/2011 Contusion of chest wall 06/13/200701/31 Routine general medical exam ination at a health care facility 07/27/2005 11/24/2010 Cellulitis of foot 0 Subacute bacterial endocarditis 09/23/2020 Acute bacterial endocarditis 09/23/2020 Encounters Date Type Department Care Team Description [facility] [address] [place] [address] Kenrick Lemon PA-C 11/13/2024 [facility] [address] [place] [address] Kevin Ashley MD 11/07/2024 [facility] - [facility] [address] [place] [phone] Donald Guerrero MD Insomnia, unspecified type 11/07/2024 Refill [facility] [address] [place] [phone] Elda Mart MD Erectile dysfunction, unspecified erectile dysfunction type 10/31/2024 External Device Data STL ABSTRACTION Provider, Abstract 10/25/2024 External Device Data STL ABSTRACTION Provider, Abstract 10/18/2024 Refill [facility] [address] [place] [phone] Donald Guerrero MD Insomnia, unspecified type 10/18/2024 Refill [facility] Orthopedic Surgery at the [facility] Medicine [address] [place] [address] Jose Berry MD Left Shoulder Osteoarthritis 10/14/2024 Refill [facility] Orthopedic Surgery at the [facility] Medicine [address] [place] [address] [address] [place] [address] Kenrick Lemon PA-C 10/13/2024 Refill [facility] Vascular At [facility] [address] [place] [address] Kevin Ashley MD 09/29/2024 [facility] [address] [place] [address] Jose Berry MD Left Shoulder Osteoarthritis 09/24/2024 Refill [facility] [address] [place] [address] Donald Guerrero MD Insomnia, unspecified type 09/22/2024 Refill [facility] [address] [place] [phone] Donald Guerrero MD Insomnia, unspecified type 09/19/2024 [facility] [address] [place] [address] Kenrick Lemon PA-C 09/07/2024 11:15 AM TEACHER COUNSELOR Office Visit [facility] Heart [facility] Vascular - [facility] [address] [place] [phone] Kevin Ashley MD S/P AVR (aortic valve replacement) (Primary Dx); Secondary cardiomyopathy (CMS/HCC); Chronic systolic HF (heart failure) (CMS/HCC); History of subacute bacterial endocarditis; Essential hypertension, benign; Mixed hyperlipidemia; PAF (paroxysmal atrial fibrillation) (CMS/HCC); S/P ascending aortic aneurysm repair; History of CVA (cerebrovascular accident) 08/27/2024 Refill [facility] Heart [facility] Vascular At [address] [place] [address] Kevin Ashley MD 08/20/2024 Refill [facility] Orthopedic Surgery at the [address] [place] [address] Kenrcik Lemon PA-C 08/20/2024 Refill [facility] Vascular At [address] [place] [address] Kevin Ashley MD 08/20/2024 Refill [facility] Primary Care - [facility] [address] [place] [address] Elda Mart MD Erectile dysfunction, unspecified erectile dysfunction type from Last 3 Months Immunizations Immunization Administration Dates Next Due (ADACEL/BOOSTRIX)(10 YR UP) TDAP VACCINE, 0.5ML, IM 06/06/2010 (PFIZER)(12 YR UP) COVID-19 VACCINE - EMERGENCY USE AUTHORIZATION, MRNA, [id number](PF) 30 MCG/0.3 ML IM SUSP 06/08/2021,12/27/2020,12/02/2020 (PNEUMOVAX 23)(50 YRS UP) PN EUMOCOCCAL POLYSACCHARIDE (PPV23) 0.5 ML, IM 09/19/2019 (PREVNAR 20)(6 WKS UP) PNEUM OCOCCAL CONJUGATE VACCINE 20-VALENT (PCV20), POLYSACCHARIDE [id number] CONJUGATE, ADJUVANT 0.5 ML (PF) IM 10/14/2022 (TENIVAC)(7 YRS UP) TETANUS AND DIPHTHERIA TOXOIDS, ADSORBED (5 LF OF TETANUS TOXOID AND 2 LF OF DIPHTHERIA TOXOID), 0.5ML (PF), IM 01/29/2019 INFLUENZA VACCINE HIGH DOSE QUADRIVALENT 65 YR UP PF IM 09/23/2020 INFLUENZA VACCINE QUADRIVALE NT 3 YR UP PF IM 09/01/2016 Family History Medical History Relation Name Comments Parkinson's Disease Brother Heart Disease Father angelika calvillo Hypertension Father angelika calvillo Stroke Father angelika calvillo Alzheimer's Disease Maternal Grandfather Alzheimer's Disease Maternal Grandmother Alzheimer's Disease Mother Healthy Other Heart Disease Paternal Grandfather marco calvillo Hypertension Paternal Grandfather marco calvillo Stroke Paternal Grandfather marco calvillo Colon Cancer Neg Hx Relation Name Status Comments Brother Father angelika calvillo Maternal Grandfather Maternal Grandmother Mother Other Paternal Grandfather marco calvillo Social History Tobacco Use Types Packs/Day Years Used Date Smoking Tobacco: Never Passive Smoke Exposure: Never Smokeless Tobacco: Never Tobacco Cessation:Counseling Given: Not Answered Alcohol Use Standard Drinks/Week Comments Yes 7 [...] on file Legal Sex Male 4:28 AM TEACHER COUNSELOR Gender Identity Not on file Sexual Orientation Not on file Occupation Industry Job Start Date Job End Date Not on file Not on file Not on file Not on file Last Filed Vital Signs Vital Sign Reading Time Taken Comments Blood Pressure 128/76 09/07/2024 11:15 AM TEACHER COUNSELOR Pulse 60 09/07/2024 11:15 AM TEACHER COUNSELOR Temperature 36.6 C (97.9 F) 05/10/2023 10:14 AM CDT Respiratory Rate 18 03/30/2024 1:13 PM CDT Oxygen Saturation 94% 09/07/2024 11:15 AM TEACHER COUNSELOR Inhaled Oxygen Concentration - - Weight 70.3 kg (155 lb) 09/07/2024 11:15 AM TEACHER COUNSELOR Height 172.7 cm (5' 8 ) 09/07/2024 11:15 AM TEACHER COUNSELOR Body Mass Index 23.57 09/07/2024 11:15 AM TEACHER COUNSELOR Plan of Treatment Upcoming Encounters Date Type Department Care Team (Late st Contact Info) Description 11/27/2024 1:00 PM TEACHER COUNSELOR Office Visit [facility] Primary Care - [facility] [address] [place] [address] Yee Banegas NP [address] [place] [address] 03/08/2025 12:45 PM CDT Office Visit [facility] Vascular - [facility] [address] [place] [address] Kevin Ashley MD [address] [facility] [address] [place] [address] Health Maintenance Due Date Last Done Comments FIT-DNA Q 3 years 1999 FIT/FOBT Q 1 year 1999 Flex Sig/CT Colonography Q 5 years 1999 ZOSTER VACCINE (1 of 2) 2004 RSV VACCINE (60+ or ) (1 - Risk 60-74 years 1-dose series) 2014 INFLUENZA VACCINE (#1) 2024 3, 09/23/2020, 07/02/2020, Additional history exists COVID-19 Vaccine (4 - 2023-2 5 season) 2024 06/08/2021, 12/27/2020, 12/02/2020 Preventative Visit- Commercial 10/03/2024 0 03/30/2024, 10/14/2022, 09/24/2021, Additional history exists COLORECTAL SCREENING 09/01/2028 09/01/2018, 09/01/20 18 Colorectal Cancer Screening 09/01/2028 DTAP/TDAP/TD VACCINES (3 - T d or Tdap) 01/29/2029 01/29/2019, 06/06/2010 PNEUMOCOCCAL VACCINE 65+ YEARS Completed 10/14/2022 , 09/19/2019 Medical Devices Implanted Type Area Handle Assembler Device Identifier Shelf Expiration Date Model / Serial / Lot Dbm Osteosponge 10ml [id number] - [id number] Implanted:Qty: 1 on 02/12/2014 by Jayant Hua MD at [facility] N/A: Spine Lumbar BACTERIN 10/23/2018 [id number] / [id number] / Dbm Osteosponge 10ml [id number] - [id number] Implanted:Qty: 1 on 02/12/2014 by Jayant Hua MD at [facility] N/A: Spine Lumbar BACTERIN 10/11/2018 [id number] / [id number] / Adh Bioglue 10ml [id number] - [id number] Implanted:Qty: 1 on 09/10/2016 by Chikis David MD at [facility] N/A: Chest CRY[employer]IFE INC 10/11/2017 [id number] / / [id number] Vitoss Foam Pack Ba2x 10ml - [id number] Implanted:Qty: 1 on 09/04/2020 by Jayant Hua MD at [facility] N/A: Spine Lumbar LINDA- SPINE 07/30/2021 / / [id number] Vitoss Foam Pack Ba2x 10ml - [id number] Implanted:Qty: 1 on 09/04/2020 by Jayant Hua MD at [facility] N/A: Spine Lumbar LINDA- SPINE [id number] 04/29/2021 / / [id number] Globus Implanted:Qty: 2 on 07/29/2011 at [facility] Cage Spine Lumbar GLO[employer]ICAL 194.122 / / Description:sustain caload 3 2sterilized jul 28, 2011 Globus Implanted:Qty: 2 on 07/29/2011 at [facility] Cage [employer]ICAL 194.422 / / Description:sustain caload 3 2sterilized jul 28, 2011 [place] Interbody Cage Implanted:Qty: 2 on 09/04/2020 by Jayant Hua MD at [facility] Cage N/A: Spine Lumbar G[employer] 193.001 / LOAD 1 10 / STERILIZSED 08/26/2020 Log [id number] - Globus [place] Posterior Stabilization System - 1 - Cap Lock [place] 124.000 Implanted:Qty: 6 on 07/29/2011 at [facility] End Bilateral : Spine Lumbar [employer] [id number] / / Description:load 32sterilize d jul 28, 2011 Cap Lock [place] 124.000 - [id number] Implanted:Qty: 4 on 02/12/2014 at [facility] Explanted:Qty: 2 on 09/04/2020 by Jayant Hua MD at [facility] End N/A: Spine Lumbar [employer] [id number] / / Description:LOAD 39, FEBRUARY 11, 2014 Cap Loc [place] 124.000 - Sload 3 4 Implanted:Qty: 8 on 09/04/2020 by Jayant Hua MD at [facility] End N/A: Spine Lumbar [employer] 124.000 / LOAD 3 4 / STERILIZED 09/03/2020 Description:ALL GLOBUS MEDIC AL COMPONETS ON REQUISITION# [id number] [place] Ptfe Thck [id number] - [id number] Implanted:Qty: 1 on 04/02/2014 by Chikis David MD at [facility] Graft N/A: Aorta CR BARD- WILFRED VASC INC 04/02/2018 7837 / / [id number] Description:graft reinforcem ent Shirley Mitroflow Valsalva Conduit Implanted:Qty: 1 on 04/02/2014 by Chikis David MD at [facility] Graft N/A: Aorta SHIRLEY [employer] USA 05/03/2017 [id number] / / [id number] [place] Ptfe Thck [id number] 565552 - [id number] Implanted:Qty: 1 on 09/10/2016 by Chikis David MD at [facility] Graft N/A: Aorta CR BARD- WILFRED VASC INC 02/27/2021 7837 / / [id number] Hemostatic Surgicel 4x8in 1952 - [id number] Implanted:Qty: 1 on 09/10/2016 by Chikis David MD at [facility] Hemostatic N/A: Chest J&J- ETHICON INC 03/02/2021 1953 / / [id number] Hemostatic Surgicel 4x8in 1952 - [id number] Implanted:Qty: 1 on 09/10/2016 by Chikis David MD at [facility] Hemostatic N/A: Chest J&J- ETHICON INC 04/01/2017 1953 / / [id number] Hemostatic Surgiflo 8ml W/Thrombin 2994 - [id number] Implanted:Qty: 1 on 05/22/2018 by Jayant Hua MD at [facility] Hemostatic N/A: Spine Lumbar J&J- ETHICON INC 07/02/2019 2994 / / [id number] Hemostatic Surgiflo 8ml W/Thrombin 2994 - [id number] Implanted:Qty: 1 on 09/04/2020 by Jayant Hua MD at [facility] Hemostatic N/A: Spine Lumbar J&J- ETHICON INC 10/02/2021 2994 / / [id number] Mesh Plug Perfix Light [facility] [id number] - [id number] Implanted:Qty: 1 on 12/03/2022 by Maxim Yadav MD at [facility] Mesh Right: Inguinal BARD DAVOL [id number] 07/30/2027 [id number] / / [id number] Graft Vasc [place] 6vac79ae [id number] - [id number] Implanted:Qty: 1 on 04/02/2014 by Chikis David MD at [facility] Other Right: Chest [employer] HANNY 04/02/2018 [id number] / / [id number] Description:Axillary cannula tion Paste Inqu Mix+ 10ml Iqsp-Pp-110 - [id number] Implanted:Qty: 2 on 02/12/2014 by Jayant Hua MD at [facility] Putty N/A: Spine Lumbar [employer] 04/05/2015 IQSP-PP-110 / / [id number] Paste Inqu Mix+ 5ml Iqsp-Pp-105 - [id number] Implanted:Qty: 1 on 02/12/2014 by Jayant Hua MD at [facility] Putty N/A: Spine Lumbar [employer] 03/14/2015 IQSP-PP-105 / / [id number] Log [id number] - Globus [place] Posterior Stabilization System - 1 - Akin [place] 5.5 Crv 60mm 124.660 Implanted:Qty: 2 on 07/29/2011 at [facility] Akin Bilateral : Spine Lumbar [employer] 124.660 / / Description:load 32sterilize d jul 28, 2011 Akin [place] 5.5 Crv 75mm 124.675 - Sload#36. Sterilized 05/20/18 Implanted:Qty: 2 on 05/22/2018 by Jayant Hua MD at [facility] Akin N/A: Spine Lumbar [employer] 124.675 / LOAD#36. STERILIZED 05/20/18 / Akin [place] 5.5 Crv 125mm 124.612 - Sload 3 4 Implanted:Qty: 2 on 09/04/2020 by Jayant Hua MD at [facility] Akin N/A: Spine Lumbar [employer] 124.612 / LOAD 3 4 / STERILIZED 09/03/2020 Screw [place] Pedicle 6.5x50mm 124.466 - [id number] Implanted:Qty: 2 on 02/12/2014 at [facility] Screw N/A: Spine Lumbar [employer] 124.466 / / Description:LOAD 39, FEBRUARY 11, 2014 Screw [place] Pedicle 7.5x50mm 124.476 - Sload#36. Sterilized 05/20/18 Implanted:Qty: 4 on 05/22/2018 by Jayant Hua MD at [facility] Screw N/A: Spine Lumbar [employer] 124.476 / LOAD#36. STERILIZED 05/20/18 / Description:ALL GLOBUS MRDIC AL COMPONETS ON REQUISITION# [id number] Screw [place] Pedicle 8.5x50mm 124.486 - Sload 3 4 Implanted:Qty: 4 on 09/04/2020 by Jayant Hua MD at [facility] Screw N/A: Spine Lumbar [employer] 124.486 / LOAD 3 4 / STERILIZED 09/03/2020 Screw [place] Pedicle 7.5x45mm 124.475 - Sload 3 4 Implanted:Qty: 3 on 09/04/2020 by Jayant Hua MD at [facility] Screw N/A: Spine Lumbar [employer] 124.475 / LOAD 3 4 / STERILIZED 09/03/2020 Screw [place] Pedicle 7.5x50mm 124.476 - Sload 3 4 Implanted:Qty: 1 on 09/04/2020 by Jayant Hua MD at [facility] Screw N/A: Spine Lumbar [employer] 124.476 / LOAD 3 4 / STERILIZED 09/03/2020 Sealant Floseal W/ Adptr 10ml [id number] - [id number] Implanted:Qty: 1 on 02/12/2014 by Jayant Hua MD at [facility] Sealant Left: Spine Lumbar MCCALL- BIOSCIENCE 05/02/2015 [id number] / / [id number] Patch Tachosil Vasc [place] 4.8x4.8cm 0215927 - [id number] Implanted:Qty: 1 on 04/02/2014 by Chikis David MD at [facility] Sealant N/A: Heart MCCALL- [facility] HANNY 07/03/2015 3053109 / / [id number] Sealant Floseal W/ Apdtr 5ml [id number] - [id number] Implanted:Qty: 1 on 04/02/2014 by Chikis David MD at [facility] Sealant N/A: Arterial MCCALL- BIOSCIENCE 01/30/2015 [id number] / / [id number] [place] Floseal W/ Apdtr 5ml 1588075 - [id number] Implanted:Qty: 1 on 09/10/2016 by Chikis David MD at [facility] Sealant N/A: Chest MCCALL- BIOSCIENCE 08/02/2017 2920534 / / [id number] Spacer Caliber Implanted:Qty: 2 on 02/12/2014 by Jayant Hua MD at [facility] Spacer N/A: Spine Lumbar G[employer] 194.510 / / Description:LOAD 39, FEBRUARY 11, 2014 Log [id number] - Glob [place] Posterior Stabilization System - 1 - Connector-T [place] 48-61mm 124.915 Implanted:Qty: 1 on 07/29/2011 at [facility] Spine Bilateral : Spine Lumbar G[employer]ICAL 086727 / / Description:load 32sterilize d jul 28, 2011 Paste Inqu Mix+ 10ml Iqsp-Pp-110 - [id number] Implanted:Qty: 5 on 05/22/2018 by Jayant Hua MD at [facility] Tissue N/A: Spine Lumbar [employer]O [employer]CH[employer] INC [id number] 03/07/2019 IQSP-PP-110 / / [id number] Bone Chips Canc 30ml [id number] - [id number] Implanted:Qty: 1 on 09/04/2020 by Jayant Hua MD at [facility] Tissue N/A: Spine Lumbar [employer]OSOURCE [id number] 07/02/2025 [id number] / [id number] / Bone Chips Canc 30ml [id number] - [id number] Implanted:Qty: 1 on 09/04/2020 by Jayant Hua MD at [facility] Tissue N/A: Spine Lumbar [employer]OSOURCE [id number] 07/02/2025 [id number] / [id number] / Allograft Magnifuse Sc [id number] - [id number] Implanted:Qty: 1 on 09/04/2020 by Jayant Hua MD at [facility] Tissue N/A: Spine Lumbar [employer] [id number] 06/17/2022 [id number] / [id number] / Shirley Mitroflow Valve Implanted:Qty: 1 on 04/02/2014 by Chikis David MD at [facility] Valve N/A: Heart 01/02/2016 DLA27 / [id number] / Valve Aortic Mitroflow Prt 25mm Dla25 - [id number] Implanted:Qty: 1 on 09/10/2016 by Chikis David MD at [facility] Valve N/A: Chest SHIRLEY GROUP [facility] 10/02/2016 DLA25 / [id number] / Conduit Mitroflow Valsalva 30mm [id number] - [id number] Implanted:Qty: 1 on 09/10/2016 by Chikis David MD at [facility] Valve N/A: Chest SHIR[employer] USA 06/02/2017 [id number] / / [id number] Linq-07/21/2016 Implanted:07/21 by Adalgisa Villanueva MD (Quantity not on file) [employer]- CARD RHYTHM MGMT 06/16/2017 LNQ11 / [id number] / Description:MRI compatible [place] Ptfe 6x6mm 379937 - [id number] Implanted:Qty: 4 on 09/10/2016 by Chikis David MD at [facility] N/A: Chest CR BARD- WILFRED VASC INC 02/27/2021 [id number] / / [id number] Explanted Type Area Handle Assembler Device Identifier Shelf Expiration Date Model / Serial / Lot Cap Lock [place] 124.000 - Sload#36. Sterilized 05/20/18 Implanted:Qty: 4 on 05/22/2018 by Jayant Hua MD at [facility] Explanted:Qty: 4 on 09/04/2020 at [facility] End N/A: Spine Lumbar GLOBUS MEDICAL [id number] / LOAD#36. STERILIZED 05/20/18 / Hemostatic Surgicel 4x8in 1952 - [id number] Implanted:Qty: 1 Explanted:Qty: 1 on 09/10/2016 at [facility] Hemostatic N/A: Chest J&J- ETHICON INC 03/02/20211951 / / [id number] Akin [place] 5.5 Crv 45mm 124.645 - [id number] Implanted:Qty: 2 on 02/12/2014 by Jayant Hua MD at [facility] Explanted:Qty: 2 on 09/04/2020 by Jayant Hua MD at [facility] Akin N/A: Spine Lumbar G[employer] 124.645 / / Description:LOAD 39, FEBRUARY 11, 2014 Screw [place] Pedicle 7.5x50mm 124.476 - [id number] Implanted:Qty: 2 on 02/12/2014 at [facility] Explanted:Qty: 2 on 05/22/2018 by Jayant Hua MD at [facility] Screw N/A: Spine Lumbar G[employer] 124.476 / / Description:LOAD 39, FEBRUARY 11, 2014 Log [id number] - Globus [place] Posterior Stabilization System - 1 - Screw [place] Pedicle 6.5x40mm 124.464 Implanted:Qty: 2 on 07/29/2011 at [facility] Explanted:Qty: 2 on 09/04/2020 by Jayant Hua MD at [facility] Screw Bilatera l: Spine Lumbar G[employer]ICAL [id number] / / Description:load 32sterilize d jul 28, 2011 Log [id number] - Globus [place] Posterior Stabilization System - 1 - Screw [place] Pedicle 6.5x45mm 124.465 Implanted:Qty: 4 on 07/29/2011 at [facility] Explanted:Qty: 4 on 09/04/2020 by Jayant Hua MD at [facility] Screw Bilatera l: Spine Lumbar [employer] 124.465 / / Description:load 32sterilize d jul 28, 2011 HALF OF 2 SCREWS LEFT IN; UNABLE TO REMOVE BROKEN SCREWS. Screw [place] Pedicle 7.5x45mm 124.475 - Sload 3 4 Implanted:Jayant Hua MD (Quantity not on file) Explanted:Qty: 1 on 09/04/2020 by Jayant Hua MD at [facility] Screw N/A: Spine Lumbar G[employer] 124.475 / LOAD 3 4 / STERILIZED 09/03/2020 Procedures Procedure Name Priority Date/Time Associated Diagnosis Comments COLONOSCOPY REPORT 09/01/2018 11 :07 AM TEACHER COUNSELOR from Last 3 Months or Most Recently Relevant to Health Maintenance Results * COLONOSCOPY REPORT (09/01/2018 11:07 AM TEACHER COUNSELOR) Narrative Procedure Note Shari Paulino MD - 09/01/2018 11:06 AM CST [facility] Endoscopy Patient Name: Aris Calvillo Procedure Date: 09/01/2018 Date of : 1955 Admit Type: Outpatient Attending MD: Shari Paulino , Procedure: Colonoscopy Indications: Screening for colorectal malignant neoplasm Providers: Shari Paulino Referring MD: Campos Garcia MD Medicines: Monitored Anesthesia Care Complications: No immediate complications. Procedure: Informed consent was obtained for the procedure, including moderate sedation after risks were discussed. Based on the pre-procedure assessment, including review of the patient's medical history, medications, allergies, and review of systems, the patient was deemed to be an appropriate candidate for sedation. A timeout was performed. Continuous ECG monitoring, pulse oximetry, blood pressure monitoring, and direct observation were performed. The was introduced through the anus and advanced to the terminal ileum. The colonoscopy was performed without difficulty. The patient tolerated the procedure well. The quality of the bowel preparation was good. Estimated Blood Loss: Estimated blood loss: none. Findings: The perianal and digital rectal examinations were normal. The terminal ileum appeared normal. The examined mucosa appeared healthy and normal there were no identified polyps, masses or other lesions. Non-bleeding internal hemorrhoids were found during retroflexion. The hemorrhoids were medium-sized. Impression: - The examined portion of the ileum was normal. - Non-bleeding internal hemorrhoids. - No specimens collected. Recommendation: - Discharge patient to home (with escort). - Patient has a contact number available for emergencies. The signs and symptoms of potential delayed complications were discussed with the patient. Return to normal activities tomorrow. Written discharge instructions were provided to the patient. - Resume previous diet. - Continue present medications. - Repeat colonoscopy in 10 years for screening purposes. - Return to referring physician. Shari Paulino, 09/01/2018 11:06:02 AM This report has been signed electronically. Number of Addenda: [address]; [place] [address] Shari Paulino MD GI PROCEDURE ORDERABLE S Final Result from Last 3 Months or Most Recently Relevant to Health Maintenance Insurance [employer] [facility] [employer] Advance Directives For more information, please contact: [phone] * Full Code (Latest Code Status on File) Date Activated Date Inactivated Comments 12/03/2022 3:24 PM 12/03/2022 7:15 PM * Full Code Date Activated Date Inactivated Comments 12/03/2022 1:01 PM 12/03/2022 3:24 PM * Full Code Date Activated Date Inactivated Comments 09/04/2020 3:39 PM 09/05/2020 6:37 PM * Full Code Date Activated Date Inactivated Comments 01/04/2019 11:50 AM 01/04/2019 6:03 PM * Full Code Date Activated Date Inactivated Comments 09/01/2018 10:21 AM 09/01/2018 1:34 PM Care Teams Data Entry Machine Operator Relationship Specialty Start Date End Date Donald Guerrero MD [facility] [address] [place] [address] PCP - General Internal Medicine 09/23/20
--- OUTSIDE RECORDS SUMMARY | 2024-11-13 12:43 | XMS_ITS | Encounter Summary ---
Author Organization [facility] Address [address] [place] [address] Care Team Providers Care Farebox Repairer Name Role Phone Donald Guerrero MD Primary Care Provider Encounter Details Date Type Department Care Team (Late st Contact Info) Description 03/16/2007 Outpatient Historical [facility] Primary Care - [address] [place] [address] Sarbjit Benson MD [address] [facility] [address] [place] [address] Social History Tobacco Use Types Packs/Day Years Used Date Smoking Tobacco: Never Assessed Sex and Gender Information Value Date Recorded Sex Assigned at Not on file Legal Sex Male 4:28 AM GIS ENGINEER Gender Identity Not on file Sexual Orientation Not on file documented as of this encounter Last Filed Vital Signs Vital Sign Reading Time Taken Comments Blood Pressure 130/90 03/16/2007 10:30 AM CDT Pulse - - Temperature 36.7 C (98 F) 03/16/2007 10:30 AM CDT Respiratory Rate - - Oxygen Saturation - - Inhaled Oxygen Concentration - - Weight 73.5 kg (162 lb) 03/16/2007 10:30 AM CDT Height - - Body Mass Index - - documented in this encounter Plan of Treatment Upcoming Encounters Date Type Department Care Team (Late st Contact Info) Description 11/27/2024 1:00 PM GIS ENGINEER Office Visit [facility] Primary Care - [facility] [address] [place] [address] Yee Banegas NP [address] [place] [address] 03/08/2025 12:45 PM CDT Office Visit [facility] Heart and Vascular - [facility] [address] [place] [address] Kevin Ashley MD [address] [facility] [address] [place] [address] documented as of this encounter Visit Diagnoses Not on filedocumented in this encounter Care Teams Farebox Repairer Relationship Specialty Start Date End Date Donald Guerrero MD [address] [place] [address] PCP - General Internal Medicine 09/23/20 documented as of this encounter
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
--- OUTSIDE RECORDS SUMMARY | 2024-11-13 12:43 | XMS_ITS | Encounter Summary ---
Author Organization [facility] Address [address] [place] [address] Care Team Providers Care Ambulance Mechanic Name Role Phone Donald Guerrero MD Primary Care Provider Encounter Details Date Type Department Care Team (Late st Contact Info) Description 07/27/2005 Outpatient Historical [facility] Primary Care - [address] [place] [address] Sarbjit Benson MD [address] [facility] [address] [place] [address] Social History Tobacco Use Types Packs/Day Years Used Date Smoking Tobacco: Never Assessed Sex and Gender Information Value Date Recorded Sex Assigned at Not on file Legal Sex Male 4:28 AM LOADING MACHINE OPERATOR Gender Identity Not on file Sexual Orientation Not on file documented as of this encounter Last Filed Vital Signs Vital Sign Reading Time Taken Comments Blood Pressure 120/90 07/27/2005 1:15 PM CDT Pulse - - Temperature 36 C (96.8 F) 07/27/2005 1:15 PM CDT Respiratory Rate - - Oxygen Saturation - - Inhaled Oxygen Concentration - - Weight 80.7 kg (178 lb) 07/27/2005 1:15 PM CDT Height - - Body Mass Index - - documented in this encounter Plan of Treatment Upcoming Encounters Date Type Department Care Team (Late st Contact Info) Description 11/27/2024 1:00 PM LOADING MACHINE OPERATOR Office Visit [facility] Primary Care - [facility] [address] [place] [address] Yee Banegas NP [address] [place] [address] 03/08/2025 12:45 PM CDT Office Visit [facility] Heart and Vascular - [facility] [address] [place] [address] Kevin Ashley MD [address] [facility] [address] [place] [address] documented as of this encounter Visit Diagnoses Not on filedocumented in this encounter Care Teams Ambulance Mechanic Relationship Specialty Start Date End Date Donald Guerrero MD [address] [place] [address] PCP - General Internal Medicine 09/23/20 documented as of this encounter
--- OUTSIDE RECORDS SUMMARY | 2024-11-13 12:43 | XMS_ITS | Encounter Summary ---
Author Organization [facility] Address [address] [place] [address] Care Team Providers Care Tax Senior Associate Name Role Phone Donald Guerrero MD Primary Care Provider Encounter Details Date Type Department Care Team (Late st Contact Info) Description 07/07/2004 Outpatient Historical [facility] [address] [place] [address] [address] [place] [address] Sarbjit Benson MD [address] [facility] [address] [place] [address] Social History Tobacco Use Types Packs/Day Years Used Date Smoking Tobacco: Never Assessed Sex and Gender Information Value Date Recorded Sex Assigned at Not on file Legal Sex Male 4:28 AM BULB FILLER Gender Identity Not on file Sexual Orientation Not on file documented as of this encounter Plan of Treatment Upcoming Encounters Date Type Department Care Team (Late st Contact Info) Description 11/27/2024 1:00 PM BULB FILLER Office Visit [facility] [address] [facility] [address] [place] [address] Yee Banegas NP [address] [facility] [address] [place] [address] 03/08/2025 12:45 PM CDT Office Visit [facility] Heart and Vascular - [facility] [address] [place] [address] Kevin Ashley MD [address] [facility] [address] [place] [address] documented as of this encounter Visit Diagnoses Not on filedocumented in this encounter Care Teams Tax Senior Associate Relationship Specialty Start Date End Date Donald Guerrero MD [address] [place] [address] PCP - General Internal Medicine 09/23/20 documented as of this encounter
--- OUTSIDE RECORDS SUMMARY | 2024-11-13 12:43 | XMS_ITS | Encounter Summary ---
Author Organization [facility] Address [address] [place] [address] Care Team Providers Care Publisher Assistant Name Role Phone Donald Guerrero MD Primary Care Provider Encounter Details Date Type Department Care Team (Late st Contact Info) Description 06/13/2007 Outpatient Historical [facility] Primary Care - [address] [place] [address] Sarbjit Benson MD [address] [facility] [address] [place] [address] Social History Tobacco Use Types Packs/Day Years Used Date Smoking Tobacco: Never Assessed Sex and Gender Information Value Date Recorded Sex Assigned at Not on file Legal Sex Male 4:28 AM HELMINTHOLOGIST Gender Identity Not on file Sexual Orientation Not on file documented as of this encounter Last Filed Vital Signs Vital Sign Reading Time Taken Comments Blood Pressure 128/90 06/13/2007 1:45 PM CDT Pulse - - Temperature 36.4 C (97.5 F) 06/13/2007 1:45 PM CDT Respiratory Rate - - Oxygen Saturation - - Inhaled Oxygen Concentration - - Weight 77.1 kg (170 lb) 06/13/2007 1:45 PM CDT Height - - Body Mass Index - - documented in this encounter Plan of Treatment Upcoming Encounters Date Type Department Care Team (Late st Contact Info) Description 11/27/2024 1:00 PM HELMINTHOLOGIST Office Visit [facility] Primary Care - [facility] [address] [place] [address] Yee Banegas NP [address] [place] [address] 03/08/2025 12:45 PM CDT Office Visit [facility] Heart and Vascular - [facility] [address] [place] [address] Kevin Ashley MD [address] [facility] [address] [place] [address] documented as of this encounter Visit Diagnoses Not on filedocumented in this encounter Care Teams Publisher Assistant Relationship Specialty Start Date End Date Donald Guerrero MD [address] [place] [address] PCP - General Internal Medicine 09/23/20 documented as of this encounter
--- OUTSIDE RECORDS SUMMARY | 2024-11-13 12:43 | XMS_ITS | Encounter Summary ---
Author Organization [facility] Address [address] [place] [address] Care Team Providers Care Counter Control Operator Name Role Phone Donald Guerrero MD Primary Care Provider Encounter Details Date Type Department Care Team (Latest Contact Info) Description 12/02/2003 Outpatient Historical [facility] [place] [address] [place] [address] [place] [address] SWELLING IN HEAD & NECK (Primary Dx) Social History Tobacco Use Types Packs/Day Years Used Date Smoking Tobacco: Never Assessed Sex and Gender Information Value Date Recorded Sex Assigned at Not on file Legal Sex Male 4:28 AM CREDIT RISK ANALYTICS MANAGER Gender Identity Not on file Sexual Orientation Not on file documented as of this encounter Plan of Treatment Upcoming Encounters Date Type Department Care Team (Late st Contact Info) Description 11/27/2024 1:00 PM CREDIT RISK ANALYTICS MANAGER Office Visit [facility] Primary Care - [facility] [address] [facility] [address] [place] [address] Yee Banegas NP [address] [facility] [address] [place] [address] 03/08/2025 12:45 PM CDT Office Visit [facility] Heart and Vascular - [facility] [address] [facility] [address] [place] [address] Kevin Ashley MD [address] [facility] [address] [place] [address] documented as of this encounter Visit Diagnoses Diagnosis Swelling, mass, or lump in head and neck- Primary documented in this encounter Care Teams Counter Control Operator Relationship Specialty Start Date End Date Donald Guerrero MD [address] [facility] [address] [place] [address] PCP - General Internal Medicine 09/23/20 documented as of this encounter
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
--- OUTSIDE RECORDS SUMMARY | 2024-11-13 13:18 | XMS_ITS | Encounter Summary ---
Author Organization [facility] Address [address] [place] [address] Care Team Providers Care Lubricating Engineer Name Role Phone Donald Guerrero MD Primary Care Provider Encounter Details Date Type Department Care Team (Late st Contact Info) Description 05/10/2000 Outpatient Historical [facility] [address] [place] [address] Armando Murdock MD NO ADDRESS ON FILE Social History Tobacco Use Types Packs/Day Years Used Date Smoking Tobacco: Never Assessed Sex and Gender Information Value Date Recorded Sex Assigned at Not on file Legal Sex Male 4:28 AM MANAGER MED SURG Gender Identity Not on file Sexual Orientation Not on file documented as of this encounter Plan of Treatment Upcoming Encounters Date Type Department Care Team (Late st Contact Info) Description 11/27/2024 1:00 PM MANAGER MED SURG Office Visit [facility] [address] [place] [address] Yee Banegas NP [address] [place] [address] 03/08/2025 12:45 PM CDT Office Visit [facility] - [facility] [address] [place] [address] Kevin Ashley MD [address] [place] [address] documented as of this encounter Visit Diagnoses Not on filedocumented in this encounter Care Teams Lubricating Engineer Relationship Specialty Start Date End Date Donald Guerrero MD [address] [place] [address] [address] [place] [address] PCP - General Internal Medicine 09/23/20 documented as of this encounter
--- OUTSIDE RECORDS SUMMARY | 2024-11-13 13:18 | XMS_ITS | Encounter Summary ---
Author Organization [facility] Address 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 DECK Gender Identity Not on file Sexual Orientation Not on file documented as of this encounter Plan of Treatment Upcoming Encounters Date Type Department Care Team (Late st Contact Info) Description 11/27/2024 1:00 PM CADET DECK Office Visit [facility] Primary Care - [facility] [address] [place] [address] Yee Banegas NP [address] [place] [address] 03/08/2025 12:45 PM CDT Office Visit [facility] and V[facility] - [facility] [address] [facility] [address] [place] [address] Kevin Ashley MD [address] [place] [address] documented as of this encounter Visit Diagnoses Diagnosis Cervical spondylosis without myelopathy- Primary documented in this encounter Care Teams Mid Level Clinician Relationship Specialty Start Date End Date Donald Guerrero MD [address] [place] [address] PCP - General Internal Medicine 09/23/20 documented as of this encounter
--- OUTSIDE RECORDS SUMMARY | 2024-11-13 13:18 | XMS_ITS | Encounter Summary ---
Author Organization [facility] Address 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 [address] [place] [address] Yee Banegas NP [address] [place] [address] 03/08/2025 12:45 PM CDT Office Visit [facility] - [facility] [address] [place] [address] Kevin Ashley MD [address] [place] [address] documented as of this encounter Visit Diagnoses Not on filedocumented in this encounter Care Teams Embroidery Machine Operator Relationship Specialty Start Date End Date Donald Guerrero MD [address] [place] [address] PCP - General Internal Medicine 09/23/20 documented as of this encounter
--- OUTSIDE RECORDS SUMMARY | 2024-11-13 13:18 | XMS_ITS | Encounter Summary ---
Author Organization [facility] Address [address] [place] [address] Care Team Providers Care Occupational Therapy Program Director Name Role Phone Donald Guerrero MD Primary Care Provider Reason for Visit * Reason Comments Med Refill Encounter Details Date Type Department Care Team (Late st Contact Info) Description 11/13/2024 Refill [facility] Orthopedic Surgery at the [facility] [address] [place] [address] Kenrick Lemon PA-C [address] [place], [place] [id number] Social History Tobacco Use Types Packs/Day Years [...] on file 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 Gender Identity Not on file Sexual Orientation Not on file Occupation Industry Job Start Date Job End Date Not on file Not on file Not on file Not on file documented as of this encounter Plan of Treatment Upcoming Encounters Date Type Department Care Team (Late st Contact Info) Description 11/27/2024 1:00 PM APPLIANCE REPAIR TECHNICIAN Office Visit [facility] Primary Care - [facility] [address] [place] [address] Yee Banegas, IGOR [address] [place] [address] 03/08/2025 12:45 PM CDT Office Visit [facility] Heart and Vascular - [facility] [address] [place] [address] Kevin Ashley MD [address] [place] [address] documented as of this encounter Visit Diagnoses Not on filedocumented in this encounter Care Teams Occupational Therapy Program Director Relationship Specialty Start Date End Date Donald Guerrero MD [address] [place] [address]. [address] [place] [address] PCP - General Internal Medicine 09/23/20 documented as of this encounter
--- OUTSIDE RECORDS SUMMARY | 2024-11-13 13:18 | XMS_ITS | Encounter Summary ---
Author Organization [facility] Address 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 Gender Identity Not on file Sexual Orientation Not on file documented as of this encounter Plan of Treatment Upcoming Encounters Date Type Department Care Team (Late st Contact Info) Description 11/27/2024 1:00 PM CLINICAL ATHLETIC INSTRUCTOR Office Visit [facility] [address] [place] [address] Yee Banegas NP [address] [place] [address] 03/08/2025 12:45 PM CDT Office Visit [facility] Heart [facility] V[facility] - [facility] [address] [place] [address] Kevin Ashley MD [address] [place] [address] documented as of this encounter Visit Diagnoses Not on filedocumented in this encounter Care Teams Stud Master/Mistress Relationship Specialty Start Date End Date Donald Guerrero MD [address] [place] [address] [address] [place] [address] PCP - General Internal Medicine 09/23/20 documented as of this encounter
--- OUTSIDE RECORDS SUMMARY | 2024-11-13 13:18 | XMS_ITS | Encounter Summary ---
Author Organization [facility] Address [address] [place] [address] Care Team Providers Care Day Treatment Clinician/Art Therapist Name Role Phone Donald Guerrero MD Primary Care Provider Encounter Details Date Type Department Care Team (Late st Contact Info) Description 09/03/1998 Outpatient Historical [facility] [address] [facility] 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 [address] [place] [address] 03/08/2025 12:45 PM CDT Office Visit [facility] Heart [facility] V[facility] - [facility] [address] [place] [address] Kevin Ashley MD [address] [place] [address] documented as of this encounter Visit Diagnoses Not on filedocumented in this encounter Care Teams Day Treatment Clinician/Art Therapist Relationship Specialty Start Date End Date Donald Guerrero MD [address] [place] [address] [address] [place] [address] PCP - General Internal Medicine 09/23/20 documented as of this encounter
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
--- OUTSIDE RECORDS SUMMARY | 2024-11-13 13:18 | XMS_ITS | Encounter Summary ---
Author Organization [facility] Address 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 [address] [place] [address] Kevin Ashley MD [address] [facility] [address] [place] [address] documented as of this encounter Visit Diagnoses Not on filedocumented in this encounter Care Teams Airset Caster Relationship Specialty Start Date End Date Donald Guerrero MD [address] [place] [address] [address] [place] [address] PCP - General Internal Medicine 09/23/20 documented as of this encounter
--- OUTSIDE RECORDS SUMMARY | 2024-11-13 13:18 | XMS_ITS | Clinical Summary ---
Author Organization [facility] Address [address] [place] [address] Care Team Providers Care Re Recording Mixer Name Role Phone Donald Guerrero MD Primary [...] migh t be different from the original. Cosmetic Sales- Dr. Ashley- (Yo) Kevin Ashley MD- [facility] ( [facility]) Problem Noted Date Diagnosed Date Left Shoulder [...] 09/23/2020 Acute right arterial ischemi c stroke, ACCOUNT COORDINATOR (posterior cerebral artery) 07/13/2016 09/24/2021 Nocturia 05/26/2016 [...] Date Type Department Care Team Description [facility] Medicine [address] [place] [address] Kenrick Lemon PA-C 11/13/2024 [facility] At [facility] [address] [place] [address] Kevin Ashley MD 11/07/2024 [facility] Primary Care - [facility] [address] [place] [id number] Donald Guerrero MD Insomnia, unspecified type 11/07/2024 Refill [facility] [address] [place] [id number] Elda Mart MD Erectile dysfunction, unspecified erectile dysfunction type 10/31/2024 External Device Data STL ABSTRACTION Provider, Abstract 10/25/2024 External Device Data STL ABSTRACTION Provider, Abstract 10/18/2024 Refill [facility] [address] [place] [id number] Donald Guerrero MD Insomnia, unspecified type 10/18/2024 Refill [facility] Orthopedic Surgery at the [facility] Medicine [address] [place] [address] Jose Berry MD Left Shoulder Osteoarthritis 10/14/2024 Refill [facility] Orthopedic Surgery at the [facility] Medicine [address] [place] [address] [address] [place] [address] Kenrick Lemon PA-C 10/13/2024 Refill [facility] Heart [facility] V[facility] At [facility] [address] [place] [address] Kevin Ashley MD 09/29/2024 [facility] at the [address] [place] [address] Jose Berry MD Left Shoulder Osteoarthritis 09/24/2024 Refill [facility] [address] [place] [address] Donald Guerrero MD Insomnia, unspecified type 09/22/2024 Refill [facility] [address] [place] [address] Donald Guerrero MD Insomnia, unspecified type 09/19/2024 [facility] Medicine [address] [place] [address] Kenrick Lemon PA-C 09/07/2024 11:15 AM ACCOUNT GENERAL MANAGER Office Visit [facility] - [facility] [address] [place] [address] Kevin Ashley MD S/P AVR (aortic valve replacement) (Primary Dx); Secondary cardiomyopathy (CMS/HCC); Chronic systolic HF (heart failure) (CMS/HCC); History of subacute bacterial endocarditis; Essential hypertension, benign; Mixed hyperlipidemia; PAF (paroxysmal atrial fibrillation) (CMS/HCC); S/P ascending aortic aneurysm repair; History of CVA (cerebrovascular accident) 08/27/2024 Refill [facility] At [address] [place] [address] Kevin Ashley MD 08/20/2024 Refill [facility] Orthopedic Surgery at the [address] [place] [address] Kenrick Lemon PA-C 08/20/2024 Refill [facility] At [address] [place] [address] Kevin Ashley MD 08/20/2024 Refill [facility] Primary Care - [facility] [address] [place] [address] Elda Mart MD Erectile dysfunction, unspecified erectile dysfunction type from Last 3 Months Immunizations Immunization Administration Dates Next Due (ADACEL/BOOSTRIX)(10 YR UP) TDAP VACCINE, 0.5ML, IM 06/06/2010 (PFIZER)(12 YR UP) COVID-19 VACCINE - EMERGENCY USE AUTHORIZATION, MRNA, [id number](PF) 30 MCG/0.3 ML IM SUSP 06/08/2021,12/27/2020,12/02/2020 (PNEUMOVAX 23)(50 YRS UP) PN EUMOCOCCAL POLYSACCHARIDE (PPV23) 0.5 ML, IM 09/19/2019 (PREVNAR 20)(6 WKS UP) PNEUM OCOCCAL CONJUGATE VACCINE 20-VALENT (PCV20), POLYSACCHARIDE [id number] CONJUGATE, ADJUVANT 0.5 ML (PF) IM 10/14/2022 [...] on file Legal Sex Male 4:28 AM ACCOUNT GENERAL MANAGER Gender Identity Not on file Sexual Orientation Not on file Occupation Industry Job Start Date Job End Date Not on file Not on file Not on file Not on file Last Filed Vital Signs Vital Sign Reading Time Taken Comments Blood Pressure 128/76 09/07/2024 11:15 AM ACCOUNT GENERAL MANAGER Pulse 60 09/07/2024 11:15 AM ACCOUNT GENERAL MANAGER Temperature 36.6 C (97.9 F) 05/10/2023 10:14 AM CDT Respiratory Rate 18 03/30/2024 1:13 PM CDT Oxygen Saturation 94% 09/07/2024 11:15 AM ACCOUNT GENERAL MANAGER Inhaled Oxygen Concentration - - Weight 70.3 kg (155 lb) 09/07/2024 11:15 AM ACCOUNT GENERAL MANAGER Height 172.7 cm (5' 8 ) 09/07/2024 11:15 AM ACCOUNT GENERAL MANAGER Body Mass Index 23.57 09/07/2024 11:15 AM ACCOUNT GENERAL MANAGER Plan of Treatment Upcoming Encounters Date Type Department Care Team (Late st Contact Info) Description 11/27/2024 1:00 PM ACCOUNT GENERAL MANAGER Office Visit [facility] Primary Care - [facility] [address] [place] [address] Yee Banegas NP [address] [place] [address] 03/08/2025 12:45 PM CDT Office Visit [facility] - [facility] [address] [place] [address] Kevin Ashley MD [address] [place] [address] Health Maintenance Due Date Last Done Comments [...] , 09/19/2019 Medical Devices Implanted Type Area Can Line Operator Device Identifier Shelf Expiration Date Model / Serial / Lot Dbm Osteosponge 10ml [id number] - [id number] Implanted:Qty: 1 on 02/12/2014 by Jayant Hua MD at [facility] N/A: Spine Lumbar BACTERIN 10/23/2018 [id number] / [id number] / Dbm Osteosponge 10ml [id number] - [id number] Implanted:Qty: 1 on 02/12/2014 by Jayant Hua MD at [facility] N/A: Spine Lumbar BACTERIN 10/11/2018 [id number] / [id number] / Adh Bioglue 10ml [id number] - [id number] Implanted:Qty: 1 on 09/10/2016 by Chikis David MD at [facility] N/A: Chest CRYOLIFE INC 10/11/2017 [id number] / / [id number] Vitoss Foam Pack Ba2x 10ml - [id number] Implanted:Qty: 1 on 09/04/2020 by Jayant Hua MD at [facility] N/A: Spine Lumbar LINDA- SPINE 07/30/2021 / / [id number] Vitoss Foam Pack Ba2x 10ml - [id number] Implanted:Qty: 1 on 09/04/2020 by Jayant Hua MD at [facility] N/A: Spine Lumbar LINDA- SPINE [id number] 04/29/2021 / / [id number] Globus Implanted:Qty: 2 on 07/29/2011 at [facility] Cage Spine Lumbar GLOBUS MEDICAL 194.122 / / Description:sustain caload 3 2sterilized jul 28, 2011 Globus Implanted:Qty: 2 on 07/29/2011 at [facility] Cage GLO[employer] MEDICAL 194.422 / / Description:sustain caload 3 2sterilized jul 28, 2011 Guy Interbody Cage Implanted:Qty: 2 on 09/04/2020 by Jayant Hua MD at [facility] Cage N/A: Spine Lumbar G[employer]ICAL 193.001 / LOAD 1 10 / STERILIZSED 08/26/2020 Log [id number] - Globus Guy Posterior Stabilization System - 1 - Cap Lock Guy 124.000 Implanted:Qty: 6 on 07/29/2011 at [facility] End Bilateral : Spine Lumbar G[employer] [id number] / / Description:load 32sterilize d jul 28, 2011 Cap Lock Guy 124.000 - [id number] Implanted:Qty: 4 on 02/12/2014 at [facility] Explanted:Qty: 2 on 09/04/2020 by Jayant Hua MD at [facility] End N/A: Spine Lumbar G[employer]ICAL [id number] / / Description:LOAD 39, FEBRUARY 11, 2014 Cap Loc Guy 124.000 - Sload 3 4 Implanted:Qty: 8 on 09/04/2020 by Jayant Hua MD at [facility] End N/A: Spine Lumbar G[employer]ICAL 124.000 / LOAD 3 4 / STERILIZED 09/03/2020 Description:ALL GLOBUS MEDIC AL COMPONETS ON REQUISITION# [id number] [place] Ptfe Thck 1.9mlh28z80xn [id number] - [id number] Implanted:Qty: 1 on 04/02/2014 by Chikis David MD at [facility] Graft N/A: Aorta CR BARD- WILFRED VASC INC 04/02/2018 7837 / / [id number] Description:graft reinforcem ent Shirley Mitroflow Valsalva Conduit Implanted:Qty: 1 on 04/02/2014 by Chikis David MD at [facility] Graft N/A: Aorta SHIRLEY [employer] USA 05/03/2017 [id number] / / [id number] [place] Ptfe Thck [id number] 011509 - [id number] Implanted:Qty: 1 on 09/10/2016 by Chikis David MD at [facility] Graft N/A: Aorta CR BARD- WILFRED VASC INC 02/27/2021 7837 / / [id number] Hemostatic Surgicel 4x8in 1952 - [id number] Implanted:Qty: 1 on 09/10/2016 by Chikis David MD at [facility] Hemostatic N/A: Chest J&J- ETHICON INC 03/02/2021 1952 / / [id number] Hemostatic Surgicel 4x8in 1952 - [id number] Implanted:Qty: 1 on 09/10/2016 by Chikis David MD at [facility] Hemostatic N/A: Chest J&J- ETHICON INC 04/01/2017 1952 / / [id number] Hemostatic Surgiflo 8ml W/Thrombin 2994 - [id number] Implanted:Qty: 1 on 05/22/2018 by Jayant Hua MD at [facility] Hemostatic N/A: Spine Lumbar J&J- ETHICON INC 07/02/2019 2994 / / [id number] Hemostatic Surgiflo 8ml W/Thrombin 2994 - [id number] Implanted:Qty: 1 on 09/04/2020 by Jayant Hua MD at [facility] Hemostatic N/A: Spine Lumbar J&J- ETHICON INC 10/02/2021 2994 / / [id number] Mesh Plug Perfix Light [facility] [id number] - [id number] Implanted:Qty: 1 on 12/03/2022 by Maxim Yadav MD at [facility] Mesh Right: Inguinal BARD DAVOL [id number] 07/30/2027 [id number] / / [id number] Graft Vasc Brandon Plat 5rou17eg [id number] - [id number] Implanted:Qty: 1 on 04/02/2014 by Chikis David MD at [facility] Other Right: Chest [employer] HANNY 04/02/2018 [id number] / / [id number] Description:Axillary cannula tion Paste Inqu Mix+ 10ml Iqsp-Pp-110 - [id number] Implanted:Qty: 2 on 02/12/2014 by Jayant Hua MD at [facility] Putty N/A: Spine Lumbar [employer] 04/05/2015 IQSP-PP-110 / / [id number] Paste Inqu Mix+ 5ml Iqsp-Pp-105 - [id number] Implanted:Qty: 1 on 02/12/2014 by Jayant Hua MD at [facility] Putty N/A: Spine Lumbar [employer] 03/14/2015 IQSP-PP-105 / / [id number] Log [id number] - Globus Guy Posterior Stabilization System - 1 - Akin Guy 5.5 Crv 60mm 124.660 Implanted:Qty: 2 on 07/29/2011 at [facility] Akin Bilateral : Spine Lumbar [employer] 124.660 / / Description:load 32sterilize d jul 28, 2011 Akin Guy 5.5 Crv 75mm 124.675 - Sload#36. Sterilized 05/20/18 Implanted:Qty: 2 on 05/22/2018 by Jayant Hua MD at [facility] Akin N/A: Spine Lumbar G[employer] 124.675 / LOAD#36. STERILIZED 05/20/18 / Akin Guy 5.5 Crv 125mm 124.612 - Sload 3 4 Implanted:Qty: 2 on 09/04/2020 by Jayant Hua MD at [facility] Akin N/A: Spine Lumbar G[employer] 124.612 / LOAD 3 4 / STERILIZED 09/03/2020 Screw Guy Pedicle 6.5x50mm 124.466 - [id number] Implanted:Qty: 2 on 02/12/2014 at [facility] Screw N/A: Spine Lumbar G[employer] 124.466 / / Description:LOAD 39, FEBRUARY 11, 2014 Screw Guy Pedicle 7.5x50mm 124.476 - Sload#36. Sterilized 05/20/18 Implanted:Qty: 4 on 05/22/2018 by Jayant Hua MD at [facility] Screw N/A: Spine Lumbar G[employer] MEDICAL 124.476 / LOAD#36. STERILIZED 05/20/18 / Description:ALL GLOBUS MRDIC AL COMPONETS ON REQUISITION# [id number] Screw Guy Pedicle 8.5x50mm 124.486 - Sload 3 4 Implanted:Qty: 4 on 09/04/2020 by Jayant Hua MD at [facility] Screw N/A: Spine Lumbar G[employer] 124.486 / LOAD 3 4 / STERILIZED 09/03/2020 Screw Guy Pedicle 7.5x45mm 124.475 - Sload 3 4 Implanted:Qty: 3 on 09/04/2020 by Jayant Hua MD at [facility] Screw N/A: Spine Lumbar G[employer] 124.475 / LOAD 3 4 / STERILIZED 09/03/2020 Screw Guy Pedicle 7.5x50mm 124.476 - Sload 3 4 Implanted:Qty: 1 on 09/04/2020 by Jayant Hua MD at [facility] Screw N/A: Spine Lumbar G[employer] 124.476 / LOAD 3 4 / STERILIZED 09/03/2020 Sealant Floseal W/ Adptr 10ml [id number] - [id number] Implanted:Qty: 1 on 02/12/2014 by Jayant Hua MD at [facility] Sealant Left: Spine Lumbar MCCALL- BIOSCIENCE 05/02/2015 [id number] / / [id number] Patch Tachosil Vasc Sealant 4.8x4.8cm 8996340 - [id number] Implanted:Qty: 1 on 04/02/2014 by Chikis David MD at [facility] Sealant N/A: Heart MCCALL- [facility]THCARE HANNY 07/03/2015 5970013 / / [id number] Sealant Floseal W/ Apdtr 5ml 3773412 - [id number] Implanted:Qty: 1 on 04/02/2014 by Chikis David MD at [facility] Sealant N/A: Arterial MCCALL- BIOSCIENCE 01/30/2015 1181804 / / [id number] Sealant Floseal W/ Apdtr 5ml 5688064 - [id number] Implanted:Qty: 1 on 09/10/2016 by Chikis David MD at [facility] Sealant N/A: Chest MCCALL- BIOSCIENCE 08/02/2017 3396636 / / [id number] Spacer Caliber Implanted:Qty: 2 on 02/12/2014 by Jayant Hua MD at [facility] Spacer N/A: Spine Lumbar G[employer] 194.510 / / Description:LOAD 39, FEBRUARY 11, 2014 Log [id number] - Glob Guy Posterior Stabilization System - 1 - Connector-T Guy 48-61mm 124.915 Implanted:Qty: 1 on 07/29/2011 at [facility] Spine Bilateral : Spine Lumbar GLOBUS MEDICAL [id number] / / Description:load 32sterilize d jul 28, 2011 Paste Inqu Mix+ 10ml Iqsp-Pp-110 - [id number] Implanted:Qty: 5 on 05/22/2018 by Jayant Hua MD at [facility] Tissue N/A: Spine Lumbar [employer] INC [id number] 03/07/2019 IQSP-PP-110 / / [id number] Bone Chips Canc 30ml [id number] - [id number] Implanted:Qty: 1 on 09/04/2020 by Jayant Hua MD at [facility] Tissue N/A: Spine Lumbar ALLOSOURCE [id number] 07/02/2025 [id number] / [id number] / Bone Chips Canc 30ml [id number] - [id number] Implanted:Qty: 1 on 09/04/2020 by Jayant Hua MD at [facility] Tissue N/A: Spine Lumbar ALLOSOURCE [id number] 07/02/2025 [id number] / [id number] / Allograft Magnifuse Sc [id number] - [id number] Implanted:Qty: 1 on 09/04/2020 by Jayant Hua MD at [facility] Tissue N/A: Spine Lumbar [employer] [id number] 06/17/2022 [id number] / [id number] / Shirley Mitroflow Valve Implanted:Qty: 1 on 04/02/2014 by Chikis David MD at [facility] Valve N/A: Heart 01/02/2016 DLA27 / [id number] / Valve Aortic Mitroflow Prt 25mm Dla25 - [id number] Implanted:Qty: 1 on 09/10/2016 by Chikis David MD at [facility] Valve N/A: Chest SHIRLEY GROUP [facility] 10/02/2016 DLA25 / [id number] / Conduit Mitroflow Valsalva 30mm [id number] - [id number] Implanted:Qty: 1 on 09/10/2016 by Chikis David MD at [facility] Valve N/A: Chest [employer]IR[employer] USA 06/02/2017 [id number] / / [id number] Linq-07/21/2016 Implanted:07/21 by Adalgisa Villanueva MD (Quantity not on file) Aphria- CARD RHYTHM MGMT 06/16/2017 LNQ11 / [id number] / Description:MRI compatible Pledget Ptfe 6x6mm 744684 - [id number] Implanted:Qty: 4 on 09/10/2016 by Chikis David MD at [facility] N/A: Chest CR BARD- WILFRED VASC INC 02/27/2021 [id number] / / [id number] Explanted Type Area Can Line Operator Device Identifier Shelf Expiration Date Model / Serial / Lot Cap Lock Guy 124.000 - Sload#36. Sterilized 05/20/18 Implanted:Qty: 4 on 05/22/2018 by Jayant Hua MD at [facility] Explanted:Qty: 4 on 09/04/2020 at [facility] End N/A: Spine Lumbar GLOBUS MEDICAL [id number] / LOAD#36. STERILIZED 05/20/18 / Hemostatic Surgicel 4x8in 1952 - [id number] Implanted:Qty: 1 Explanted:Qty: 1 on 09/10/2016 at [facility] Hemostatic N/A: Chest J&J- ETHICON INC 03/02/20211951 / / [id number] Akin Guy 5.5 Crv 45mm 124.645 - [id number] Implanted:Qty: 2 on 02/12/2014 by Jayant Hua MD at [facility] Explanted:Qty: 2 on 09/04/2020 by Jayant Hua MD at [facility] Akin N/A: Spine Lumbar GLO[employer]ICAL 124.645 / / Description:LOAD 39, FEBRUARY 11, 2014 Screw Guy Pedicle 7.5x50mm 124.476 - [id number] Implanted:Qty: 2 on 02/12/2014 at [facility] Explanted:Qty: 2 on 05/22/2018 by Jayant Hua MD at [facility] Screw N/A: Spine Lumbar G[employer] 124.476 / / Description:LOAD 39, FEBRUARY 11, 2014 Log [id number] - Globus Guy Posterior Stabilization System - 1 - Screw Guy Pedicle 6.5x40mm 124.464 Implanted:Qty: 2 on 07/29/2011 at [facility] Explanted:Qty: 2 on 09/04/2020 by Jayant Hua MD at [facility] Screw Bilatera l: Spine Lumbar G[employer]ICAL [id number] / / Description:load 32sterilize d jul 28, 2011 Log [id number] - Globus Guy Posterior Stabilization System - 1 - Screw Guy Pedicle 6.5x45mm 124.465 Implanted:Qty: 4 on 07/29/2011 at [facility] Explanted:Qty: 4 on 09/04/2020 by Jayant Hua MD at [facility] Screw Bilatera l: Spine Lumbar G[employer] 124.465 / / Description:load 32sterilize d jul 28, 2011 HALF OF 2 SCREWS LEFT IN; UNABLE TO REMOVE BROKEN SCREWS. Screw Guy Pedicle 7.5x45mm 124.475 - Sload 3 4 Implanted:Jayant Hua MD (Quantity not on file) Explanted:Qty: 1 on 09/04/2020 by Jayant Hua MD at [facility] Screw N/A: Spine Lumbar G[employer] 124.475 / LOAD 3 4 / STERILIZED 09/03/2020 Procedures Procedure Name Priority Date/Time Associated Diagnosis Comments COLONOSCOPY REPORT 09/01/2018 11 :07 AM ACCOUNT GENERAL MANAGER from Last 3 Months or Most Recently Relevant to Health Maintenance Results * COLONOSCOPY REPORT (09/01/2018 11:07 AM ACCOUNT GENERAL MANAGER) Narrative Procedure Note Shari Paulino MD - 09/01/2018 11:06 AM [facility] Endoscopy Patient Name: Aris Calvillo Procedure Date: [...] of Addenda: [address]; [place] [address] Shari Paulino MD GI PROCEDURE ORDERABLE S Final Result from Last 3 Months or Most Recently Relevant to Health Maintenance Insurance [employer] [facility] Advance Directives For more information, please contact: [phone] * Full Code (Latest Code Status on [...] 10:21 AM 09/01/2018 1:34 PM Care Teams Re Recording Mixer Relationship Specialty Start Date End Date Donald Guerrero MD [facility] [address] [place] [address] PCP - General Internal Medicine 09/23/20
--- OUTSIDE RECORDS SUMMARY | 2024-11-13 13:18 | XMS_ITS | Encounter Summary ---
Author Organization [facility] Address [address] [place] [address] Care Team Providers Care Manufacturing Clerk Name Role Phone Donald Guerrero MD Primary Care Provider Encounter Details Date Type Department Care Team (Late st Contact Info) Description 04/16/2002 Outpatient Historical [facility] [address] [place] [address] Jayant Quesada Social History Tobacco Use Types Packs/Day Years Used Date Smoking Tobacco: Never Assessed Sex and Gender Information Value Date Recorded Sex Assigned at Not on file Legal Sex Male 4:28 AM MECHANICAL SPREADER OPERATOR Gender Identity Not on file Sexual Orientation Not on file documented as of this encounter Plan of Treatment Upcoming Encounters Date Type Department Care Team (Late st Contact Info) Description 11/27/2024 1:00 PM MECHANICAL SPREADER OPERATOR Office Visit [facility] [address] [place] [address] Yee Banegas NP [address] [place] [address] 03/08/2025 12:45 PM CDT Office Visit [facility] Heart and Vascular - [facility] [address] [place] [address] Kevin Ashley MD [address] [facility] [address] [place] [address] documented as of this encounter Visit Diagnoses Not on filedocumented in this encounter Care Teams Manufacturing Clerk Relationship Specialty Start Date End Date Donald Guerrero MD [address] [place] [address] [address] [place] [address] PCP - General Internal Medicine 09/23/20 documented as of this encounter
--- OUTSIDE RECORDS SUMMARY | 2024-11-13 13:18 | XMS_ITS | Encounter Summary ---
Author Organization [facility] Address [address] [place] [address] Care Team Providers Care Yard Spotter Name Role Phone Donald Guerrero MD Primary Care Provider Encounter Details Date Type Department Care Team (Late st Contact Info) Description 06/30/2000 Outpatient Historical [facility] [address] [facility] [place] [address] Armando Murdock MD NO ADDRESS ON FILE Social History Tobacco Use Types Packs/Day Years Used Date Smoking Tobacco: Never Assessed Sex and Gender Information Value Date Recorded Sex Assigned at Not on file Legal Sex Male 4:28 AM MOCCASIN SEWER Gender Identity Not on file Sexual Orientation Not on file documented as of this encounter Plan of Treatment Upcoming Encounters Date Type Department Care Team (Late st Contact Info) Description 11/27/2024 1:00 PM MOCCASIN SEWER Office Visit [facility] [address] [place] [address] Yee Banegas NP [address] [facility] [place] [address] 03/08/2025 12:45 PM CDT Office Visit [facility] Heart and Vascular - [facility] [address] [place] [address] Kevin Ashley MD [address] [facility] [address] [place] [address] documented as of this encounter Visit Diagnoses Not on filedocumented in this encounter Care Teams Yard Spotter Relationship Specialty Start Date End Date Donald Guerrero MD [address] [place] [address] [address] [place] [address] PCP - General Internal Medicine 09/23/20 documented as of this encounter
--- OUTSIDE RECORDS SUMMARY | 2024-11-13 13:18 | XMS_ITS | Encounter Summary ---
Author Organization [facility] Address [address] [place] [address] Care Team Providers Care Tents Assembler Name Role Phone Donald Guerrero MD Primary Care Provider Encounter Details Date Type Department Care Team (Late st Contact Info) Description 07/03/2002 Outpatient Historical [facility] [address] [facility] [address] [place] [address] Jayant Quesada Social History Tobacco Use Types Packs/Day Years Used Date Smoking Tobacco: Never Assessed Sex and Gender Information Value Date Recorded Sex Assigned at Not on file Legal Sex Male 4:28 AM CHARRER Gender Identity Not on file Sexual Orientation Not on file documented as of this encounter Plan of Treatment Upcoming Encounters Date Type Department Care Team (Late st Contact Info) Description 11/27/2024 1:00 PM CHARRER Office Visit [facility] [address] [place] [address] Yee Banegas NP [address] [facility] [address] [place] [address] 03/08/2025 12:45 PM CDT Office Visit [facility] Heart and Vascular - [facility] [address] [place] [address] Kevin Ashley MD [address] [facility] [address] [place] [address] documented as of this encounter Visit Diagnoses Not on filedocumented in this encounter Care Teams Tents Assembler Relationship Specialty Start Date End Date Donald Guerrero MD [address] [place] [address] [address] [place] [address] PCP - General Internal Medicine 09/23/20 documented as of this encounter
--- OUTSIDE RECORDS SUMMARY | 2024-11-13 13:18 | XMS_ITS | Encounter Summary ---
Author Organization [facility] Address [address] [place] [address] Care Team Providers Care Spool Cleaner Hand Name Role Phone Donald Guerrero MD Primary Care Provider Encounter Details Date Type Department Care Team (Late st Contact Info) Description 03/13/2002 Outpatient Historical [facility] [address] [facility] [address] [place] [address] Jayant Quesada Social History Tobacco Use Types Packs/Day Years Used Date Smoking Tobacco: Never Assessed Sex and Gender Information Value Date Recorded Sex Assigned at Not on file Legal Sex Male 4:28 AM COMMUNITY ORGANIZATION AIDE Gender Identity Not on file Sexual Orientation Not on file documented as of this encounter Plan of Treatment Upcoming Encounters Date Type Department Care Team (Late st Contact Info) Description 11/27/2024 1:00 PM COMMUNITY ORGANIZATION AIDE Office Visit [facility] [address] [place] [address] Yee Banegas NP [address] [facility] [address] [place] [address] 03/08/2025 12:45 PM CDT Office Visit [facility] Heart and Vascular - [facility] [address] [place] [address] Kevin Ashley MD [address] [facility] [address] [place] [address] documented as of this encounter Visit Diagnoses Not on filedocumented in this encounter Care Teams Spool Cleaner Hand Relationship Specialty Start Date End Date Donald Guerrero MD [address] [place] [address] [address] [place] [address] PCP - General Internal Medicine 09/23/20 documented as of this encounter
--- OUTSIDE RECORDS SUMMARY | 2024-11-13 13:18 | XMS_ITS | Encounter Summary ---
Author Organization [facility] Address [address] [place] [address] Care Team Providers Care Municipal Bond Trader Name Role Phone Donald Guerrero MD Primary [...] on file Legal Sex Male 4:28 AM TICKER MAINTAINER Gender Identity Not on file Sexual Orientation Not on file documented as of this encounter Plan of Treatment Upcoming Encounters Date Type Department Care Team (Late st Contact Info) Description 11/27/2024 1:00 PM TICKER MAINTAINER Office Visit [facility] Primary Care - [facility] [address] [place] [address] Yee Banegas NP [address] [facility] [address] [place] [address] 03/08/2025 12:45 PM CDT Office Visit [facility] Heart and Vascular - [facility] [address] [place] [address] Kevin Ashley MD [address] [facility] [address] [place] [address] documented as of this encounter Visit Diagnoses Diagnosis Lumbago- Primary documented in this encounter Care Teams Municipal Bond Trader Relationship Specialty Start Date End Date Donald Guerrero MD [address] [facility] [place] [address] PCP - General Internal Medicine 09/23/20 documented as of this encounter
--- OUTSIDE RECORDS SUMMARY | 2024-11-13 13:19 | XMS_ITS | Encounter Summary ---
Author Organization [facility] Address [address] [place] [address] Care Team Providers Care Limited Radiology Technician Name Role Phone Donald Guerrero MD Primary Care Provider Encounter Details Date Type Department Care Team (Late st Contact Info) Description 07/07/2004 Outpatient Historical [facility] [address] [place] [address] [address] [place] [address] Sarbjit Benson MD [address] [facility] [address] [place] [address] Social History Tobacco Use Types Packs/Day Years Used Date Smoking Tobacco: Never Assessed Sex and Gender Information Value Date Recorded Sex Assigned at Not on file Legal Sex Male 4:28 AM SUPERVISOR KENNEL Gender Identity Not on file Sexual Orientation Not on file documented as of this encounter Plan of Treatment Upcoming Encounters Date Type Department Care Team (Late st Contact Info) Description 11/27/2024 1:00 PM SUPERVISOR KENNEL Office Visit [facility] - [facility] [address] [facility] [address] [place] [address] Yee Banegas NP [address] [facility] [address] [place] [address] 03/08/2025 12:45 PM CDT Office Visit [facility] Heart and Vascular - [facility] [address] [place] [address] Kevin Ashley MD [address] [facility] [address] [place] [address] documented as of this encounter Visit Diagnoses Not on filedocumented in this encounter Care Teams Limited Radiology Technician Relationship Specialty Start Date End Date Donald Guerrero MD [address] [place] [address] PCP - General Internal Medicine 09/23/20 documented as of this encounter
--- OUTSIDE RECORDS SUMMARY | 2024-11-13 13:19 | XMS_ITS | Encounter Summary ---
Author Organization [facility] Address [address] [place] [address] Care Team Providers Care Medical Device Sales Representative Name Role Phone Donald Guerrero MD Primary Care Provider Encounter Details Date Type Department Care Team (Late st Contact Info) Description 06/11/2008 Outpatient Historical [facility] Troy Lizarraga MD [address] [place] [address] [place] [address] Social History Tobacco Use Types Packs/Day Years Used Date Smoking Tobacco: Never Alcohol Use Standard Drinks/Week Comments Not Asked 0 (1 standard drink = 0.6 oz pur e alcohol) Sex and Gender Information Value Date Recorded Sex Assigned at Not on file Legal Sex Male 4:28 AM COSMETIC SURGEON Gender Identity Not on file Sexual Orientation Not on file documented as of this encounter Plan of Treatment Upcoming Encounters Date Type Department Care Team (Late st Contact Info) Description 11/27/2024 1:00 PM COSMETIC SURGEON Office Visit [facility] Primary Care - [facility] [address] [facility] [address] [place] [address] Yee Banegas NP [address] [facility] [address] [place] [address] 03/08/2025 12:45 PM CDT Office Visit [facility] - [facility] [address] [facility] [address] [place] [address] Kevin Ashley MD [address] [facility] [address] [place] [address] documented as of this encounter Procedures Procedure Name Priority Date/Time Associated Diagnosis Comments PATHOLOGY Routine 06/11/2008 12:20 PM CDT documented in this encounter Results * PATHOLOGY (06/11/2008 12:20 PM CDT) FINAL REPORT [facility] [address] [place], [place] [address] Patient: JOHNNY MATTHEW : 1955 Procedure Date: 06/11/2008 Accession Date: 06/11/2008 Case No: [id number] Ordering Dr: TROY LIZARRAGA Case types AW, BW, FW, NW and SH are performed by [facility] [place], [place] SURGICAL PATHOLOGY & NON-GYNECOLOGIC CYTOPATHOLOGY REPORT [...] 05:44 pm Microscopic: Received are slides labeled [id number], Johnny Matthew. Histological examination of the specimen [...] on filedocumented in this encounter Care Teams Medical Device Sales Representative Relationship Specialty Start Date End Date Donald Guerrero MD [address] [facility] [address] [place] [address] PCP - General Internal Medicine 09/23/20 documented as of this encounter
--- OUTSIDE RECORDS SUMMARY | 2024-11-13 13:19 | XMS_ITS | Encounter Summary ---
Author Organization [facility] Address [address] [place] [address] Care Team Providers Care Painter Ordnance Name Role Phone Donald Guerrero MD Primary Care Provider Encounter Details Date Type Department Care Team (Late st Contact Info) Description 03/08/2008 Outpatient Historical [facility], [address] Sarbjit Benson MD [address] [facility] [address] [place] [address] Essential Hypertension, Benign Social History Tobacco Use Types Packs/Day Years Used Date Smoking Tobacco: Never Alcohol Use Standard Drinks/Week Comments Not Asked 0 (1 standard drink = 0.6 oz pur e alcohol) Sex and Gender Information Value Date Recorded Sex Assigned at Not on file Legal Sex Male 4:28 AM SAMPLING THEORY TEACHER Gender Identity Not on file Sexual Orientation Not on file documented as of this encounter Plan of Treatment Upcoming Encounters Date Type Department Care Team (Late st Contact Info) Description 11/27/2024 1:00 PM SAMPLING THEORY TEACHER Office Visit [facility] [address] [facility] [address] [place] [address] Yee Banegas NP [address] [facility] [address] [place] [address] 03/08/2025 12:45 PM CDT Office Visit [facility] [address] [place] [address] Kevin Ashley MD [address] [facility] [address] [place] [address] documented as of this encounter Visit Diagnoses Diagnosis Essential hypertension, benign documented in this encounter Care Teams Painter Ordnance Relationship Specialty Start Date End Date Donald Guerrero MD [address] [place] [address] PCP - General Internal Medicine 09/23/20 documented as of this encounter
--- OUTSIDE RECORDS SUMMARY | 2024-11-13 13:19 | XMS_ITS | Encounter Summary ---
Author Organization [facility] Address [address] [place] [address] Care Team Providers Care Mirror Finishing Machine Operator Name Role Phone Donald Guerrero MD Primary Care Provider Encounter Details Date Type Department Care Team (Late st Contact Info) Description 02/02/2008 Outpatient Historical [address] [place] [address] Elda Mart MD [address] [place] [address] [place] [address] Social History Tobacco Use Types Packs/Day Years Used Date Smoking Tobacco: Never Assessed Sex and Gender Information Value Date Recorded Sex Assigned at Not on file Legal Sex Male 4:28 AM CMO Gender Identity Not on file Sexual Orientation Not on file documented as of this encounter Plan of Treatment Upcoming Encounters Date Type Department Care Team (Late st Contact Info) Description 11/27/2024 1:00 PM CMO Office Visit [facility] [address] [facility] [address] [place] [address] Yee Banegas NP [address] [facility] [address] [place] [address] 03/08/2025 12:45 PM CDT Office Visit [facility] Heart and Vascular - [facility] [address] [place] [address] Kevin Ashley MD [address] [facility] [address] [place] [address] documented as of this encounter Visit Diagnoses Not on filedocumented in this encounter Care Teams Mirror Finishing Machine Operator Relationship Specialty Start Date End Date Donald Guerrero MD [address] [place] [address] PCP - General Internal Medicine 09/23/20 documented as of this encounter
--- OUTSIDE RECORDS SUMMARY | 2024-11-13 13:19 | XMS_ITS | Encounter Summary ---
Author Organization [facility] Address [address] [place] [address] Care Team Providers Care Thermoscrew Operator Name Role Phone Donadl Guerrero MD Primary Care Provider Encounter Details Date Type Department Care Team (Latest Contact Info) Description 01/14/2003 Outpatient Historical [facility] Jayant Quesada FINGER INJURY NOS (Primary Dx) Social History Tobacco Use Types Packs/Day Years Used Date Smoking Tobacco: Never Assessed Sex and Gender Information Value Date Recorded Sex Assigned at Not on file Legal Sex Male 4:28 AM EVENT PROMOTER Gender Identity Not on file Sexual Orientation Not on file documented as of this encounter Plan of Treatment Upcoming Encounters Date Type Department Care Team (Late st Contact Info) Description 11/27/2024 1:00 PM EVENT PROMOTER Office Visit [facility] Primary Care - [facility] [address] [facility] [address] [place] [address] Yee Banegas NP [address] [facility] [address] [place] [address] 03/08/2025 12:45 PM CDT Office Visit [facility] Heart and Vascular - [facility] [address] [facility] [address] [place] [address] Kevin Ashley MD [address] [facility] [address] [place] [address] documented as of this encounter Visit Diagnoses Diagnosis Injury, other and unspecified, finger- Primary documented in this encounter Care Teams Thermoscrew Operator Relationship Specialty Start Date End Date Donald Guerrero MD [address] [place] [address] PCP - General Internal Medicine 09/23/20 documented as of this encounter
--- OUTSIDE RECORDS SUMMARY | 2024-11-13 13:19 | XMS_ITS | Encounter Summary ---
Author Organization [facility] Address [address] [place] [address] Care Team Providers Care Engraver Wood Name Role Phone Donald Guerrero MD Primary Care Provider Encounter Details Date Type Department Care Team (Late st Contact Info) Description 08/07/2007 Orders Only [facility] Primary Care - [address] [place] [address] aSrbjit Benson MD [address] [facility] [address] [place] [address] Social History Tobacco Use Types Packs/Day Years Used Date Smoking Tobacco: Never Assessed Sex and Gender Information Value Date Recorded Sex Assigned at Not on file Legal Sex Male 4:28 AM PERIOPERATIVE TECH Gender Identity Not on file Sexual Orientation Not on file documented as of this encounter Progress Notes * Sarbjit Benson MD - 02/15/2008 4:26 PM CDT TIME:10:02 am PATIENT`S HOME PHONE: PATIENT`S WORK PHONE: PATIENT`S INSURANCE: [employer] [facility] WHO TOOK THE CALL: Rosa Maria Dyer W GENERAL INFORMATION PATIENT STATUS: Established Patient. LAST VISIT: 06-13-07 PCP: Marcelino WHO CALLED: Patient called. ALTERNATIVE PHONE NUMBER: [phone] CURRENT ALLERGY LIST: [facility] NUMBER: [phone] [...] HOME PHONE: PATIENT`S WORK PHONE: PATIENT`S INSURANCE: [facility] WHO TOOK THE CALL: Raul Clemente GENERAL INFORMATION PATIENT STATUS: Established Patient. LAST VISIT: PCP: marcelino WHO CALLED: Pharmacy called. CURRENT ALLERGY LIST: [facility] NUMBER: [phone] SECTION 1: REQUESTED ACTION haroon 08/07/07 at 03:01 pm: MEDICATION REQUEST: [phone] MEDICATION REQUEST: Patient requests a refill. MEDICATIONS: VIAGRA ORAL TABLET 100 MG, 1/2 to 1 tab by mouth 30-60 minutes before sexual activity, 15 Dispensed, 3 Fills, status: NEW PRESCRIPTION, 08/07/2007. lf -----[facility] [id number], waiting on fax form pr form fxd pr FINAL ACTION: [email or web address] 08/10/07 at 04:00 pm Called pharmacy at 08/10/07 at 04:00 pm. med approved Electronically Signed by: Rosana Johnson on August documented in this encounter Plan of Treatment Upcoming Encounters Date Type Department Care Team (Late st Contact Info) Description 11/27/2024 1:00 PM PERIOPERATIVE TECH Office Visit [facility] Primary Care - [facility] [address] [facility] [address] [place] [address] Yee Banegas NP [address] [facility] [address] [place] [address] 03/08/2025 12:45 PM CDT Office Visit [facility] Heart and Vascular - [facility] [address] [facility] [address] [place] [address] Kevin Ashley MD [address] [facility] [address] [place] [address] documented as of this encounter Visit Diagnoses Not on filedocumented in this encounter Care Teams Engraver Wood Relationship Specialty Start Date End Date Donald Guerrero MD [address] [facility] [place] [address] PCP - General Internal Medicine 09/23/20 documented as of this encounter
--- OUTSIDE RECORDS SUMMARY | 2024-11-13 13:19 | XMS_ITS | Encounter Summary ---
Author Organization [facility] Address [address] [place] [address] Care Team Providers Care Customs Verifier Name Role Phone Donald Guerrero MD Primary Care Provider Encounter Details Date Type Department Care Team (Late st Contact Info) Description 08/03/2007 Orders Only [facility] Primary Care - [address] [place] [address] Sarbjit Benson MD [address] [facility] [address] [place] [address] Social History Tobacco Use Types Packs/Day Years Used Date Smoking Tobacco: Never Assessed Sex and Gender Information Value Date Recorded Sex Assigned at Not on file Legal Sex Male 4:28 AM INSIDE SALES ENGINEER Gender Identity Not on file Sexual Orientation Not on file documented as of this encounter Progress Notes * Sarbjit Benson MD - 02/15/2008 4:04 PM CDT TIME:11:08 am PATIENT`S HOME PHONE: PATIENT`S WORK PHONE: PATIENT`S INSURANCE: [employer] [facility] WHO TOOK THE CALL: Nahum Dyer W GENERAL INFORMATION PATIENT STATUS: Established Patient. LAST VISIT: 06-13-07 PCP: Marcelino. ALTERNATIVE PHONE NUMBER: [phone] WHO CALLED: Patient called. CURRENT ALLERGY LIST: [...] st Contact Info) Description 11/27/2024 1:00 PM INSIDE SALES ENGINEER Office Visit [facility] Primary Care - [facility] [address] [place] [address] [address] [place] [address] Yee Banegas NP [address] [facility] [address] [place] [address] 03/08/2025 12:45 PM CDT Office Visit [facility] Heart and Vascular - [facility] [address] [facility] [address] [place] [address] Kevin Ashley MD [address] [facility] [address] [place] [id number] documented as of this encounter Visit Diagnoses Not on filedocumented in this encounter Care Teams Customs Verifier Relationship Specialty Start Date End Date Donald Guerrero MD [address] [place] [address]. [address] [place] [address] PCP - General Internal Medicine 09/23/20 documented as of this encounter
--- OUTSIDE RECORDS SUMMARY | 2024-11-13 13:19 | XMS_ITS | Encounter Summary ---
Author Organization [facility] Address [address] [place] [address] Care Team Providers Care Ceramics Test Engineer Name Role Phone Donald Guerreor MD Primary Care Provider Encounter Details Date Type Department Care Team (Late st Contact Info) Description 10/14/2003 Outpatient Historical [facility] [address] [facility] [address] [place] [address] Jayant Quesada Social History Tobacco Use Types Packs/Day Years Used Date Smoking Tobacco: Never Assessed Sex and Gender Information Value Date Recorded Sex Assigned at Not on file Legal Sex Male 4:28 AM BOOSTER STATION OPERATOR Gender Identity Not on file Sexual Orientation Not on file documented as of this encounter Plan of Treatment Upcoming Encounters Date Type Department Care Team (Late st Contact Info) Description 11/27/2024 1:00 PM BOOSTER STATION OPERATOR Office Visit [facility] [address] [place] [address] Yee Banegas NP [address] [facility] [address] [place] [address] 03/08/2025 12:45 PM CDT Office Visit [facility] Heart and Vascular - [facility] [address] [place] [address] Kevin Ashley MD [address] [facility] [address] [place] [address] documented as of this encounter Visit Diagnoses Not on filedocumented in this encounter Care Teams Ceramics Test Engineer Relationship Specialty Start Date End Date Donald Guerrero MD [address] [place] [address] [address] [place] [address] PCP - General Internal Medicine 09/23/20 documented as of this encounter
--- OUTSIDE RECORDS SUMMARY | 2024-11-13 13:19 | XMS_ITS | Encounter Summary ---
Author Organization [facility] Address [address] [place] [address] Care Team Providers Care Brush Cleaner Name Role Phone Donald Guerrero MD Primary Care Provider Encounter Details Date Type Department Care Team (Late st Contact Info) Description 06/13/2007 Outpatient Historical [facility] Primary Care - [address] [place] [address] Sarbjit Benson MD [address] [facility] [address] [place] [address] Social History Tobacco Use Types Packs/Day Years Used Date Smoking Tobacco: Never Assessed Sex and Gender Information Value Date Recorded Sex Assigned at Not on file Legal Sex Male 4:28 AM PERSONNEL DIRECTOR Gender Identity Not on file Sexual Orientation [...] st Contact Info) Description 11/27/2024 1:00 PM PERSONNEL DIRECTOR Office Visit [facility] Primary Care - [facility] [address] [place] [address] Yee Banegas NP [address] [place] [address] 03/08/2025 12:45 PM CDT Office Visit [facility] Heart and Vascular - [facility] [address] [place] [address] Kevin Ashley MD [address] [facility] [address] [place] [address] documented as of this encounter Visit Diagnoses Not on filedocumented in this encounter Care Teams Brush Cleaner Relationship Specialty Start Date End Date Donald Guerrero MD [address] [place] [address] PCP - General Internal Medicine 09/23/20 documented as of this encounter
--- OUTSIDE RECORDS SUMMARY | 2024-11-13 13:19 | XMS_ITS | Encounter Summary ---
Author Organization [facility] Address [address] [place] [address] Care Team Providers Care Fisher Eel Name Role Phone Donald Guerrero MD Primary Care Provider Encounter Details Date Type Department Care Team (Latest Contact Info) Description 12/02/2003 Outpatient Historical [facility] [place] [address] [place] [address] [place] [address] SWELLING IN HEAD & NECK (Primary Dx) Social History Tobacco Use Types Packs/Day Years Used Date Smoking Tobacco: Never Assessed Sex and Gender Information Value Date Recorded Sex Assigned at Not on file Legal Sex Male 4:28 AM SIX HORSE HITCH DRIVER Gender Identity Not on file Sexual Orientation Not on file documented as of this encounter Plan of Treatment Upcoming Encounters Date Type Department Care Team (Late st Contact Info) Description 11/27/2024 1:00 PM SIX HORSE HITCH DRIVER Office Visit [facility] Primary Care - [facility] [address] [facility] [address] [place] [address] Yee Banegas NP [address] [facility] [address] [place] [address] 03/08/2025 12:45 PM CDT Office Visit [facility] Heart and Vascular - [facility] [address] [facility] [address] [place] [address] Kevin Ashley MD [address] [facility] [address] [place] [address] documented as of this encounter Visit Diagnoses Diagnosis Swelling, mass, or lump in head and neck- Primary documented in this encounter Care Teams Fisher Eel Relationship Specialty Start Date End Date Donald Guerrero MD [address] [facility] [address] [place] [address] PCP - General Internal Medicine 09/23/20 documented as of this encounter
--- OUTSIDE RECORDS SUMMARY | 2024-11-13 13:19 | XMS_ITS | Encounter Summary ---
Author Organization [facility] Address [address] [place] [address] Care Team Providers Care Hydroelectric Station Operator Chief Name Role Phone Donald Guerrero MD Primary Care Provider Encounter Details Date Type Department Care Team (Late st Contact Info) Description 03/16/2007 Outpatient Historical [facility] Primary Care - [address] [place] [address] Sarbjit Benson MD [address] [facility] [address] [place] [address] Social History Tobacco Use Types Packs/Day Years Used Date Smoking Tobacco: Never Assessed Sex and Gender Information Value Date Recorded Sex Assigned at Not on file Legal Sex Male 4:28 AM TRIAL MANAGER Gender Identity Not on file Sexual [...] st Contact Info) Description 11/27/2024 1:00 PM TRIAL MANAGER Office Visit [facility] Primary Care - [facility] [address] [place] [address] Yee Banegas NP [address] [place] [address] 03/08/2025 12:45 PM CDT Office Visit [facility] Heart and Vascular - [facility] [address] [place] [address] Kevin Ashley MD [address] [facility] [address] [place] [address] documented as of this encounter Visit Diagnoses Not on filedocumented in this encounter Care Teams Hydroelectric Station Operator Chief Relationship Specialty Start Date End Date Donald Guerrero MD [address] [place] [address] PCP - General Internal Medicine 09/23/20 documented as of this encounter
--- OUTSIDE RECORDS SUMMARY | 2024-11-13 13:19 | XMS_ITS | Encounter Summary ---
Author Organization [facility] Address [address] [place] [address] Care Team Providers Care Mandarin Chinese Teacher Name Role Phone Donald Guerrero MD Primary Care Provider Encounter Details Date Type Department Care Team (Late st Contact Info) Description 07/27/2005 Outpatient Historical [facility] Primary Care - [address] [place] [address] Sarbjit Benson MD [address] [facility] [address] [place] [address] Social History Tobacco Use Types Packs/Day Years Used Date Smoking Tobacco: Never Assessed Sex and Gender Information Value Date Recorded Sex Assigned at Not on file Legal Sex Male 4:28 AM ASSOCIATE DIRECTOR OF SALES Gender Identity Not on file Sexual Orientation [...] st Contact Info) Description 11/27/2024 1:00 PM ASSOCIATE DIRECTOR OF SALES Office Visit [facility] Primary Care - [facility] [address] [place] [address] Yee Banegas NP [address] [place] [address] 03/08/2025 12:45 PM CDT Office Visit [facility] Heart and Vascular - [facility] [address] [place] [address] Kevin Ashley MD [address] [facility] [address] [place] [address] documented as of this encounter Visit Diagnoses Not on filedocumented in this encounter Care Teams Mandarin Chinese Teacher Relationship Specialty Start Date End Date Donald Guerrero MD [address] [place] [address] PCP - General Internal Medicine 09/23/20 documented as of this encounter
--- OUTSIDE RECORDS SUMMARY | 2024-11-13 13:19 | XMS_ITS | Encounter Summary ---
Author Organization [facility] Address [address] [place] [address] Care Team Providers Care News Commentator Name Role Phone Donald Guerrero MD Primary Care Provider Encounter Details Date Type Department Care Team (Late st Contact Info) Description 09/21/2002 Outpatient Historical [facility] [address] [facility] [address] [place] [address] Jayant Quesada Social History Tobacco Use Types Packs/Day Years Used Date Smoking Tobacco: Never Assessed Sex and Gender Information Value Date Recorded Sex Assigned at Not on file Legal Sex Male 4:28 AM COMMERCIAL ATTORNEY Gender Identity Not on file Sexual Orientation Not on file documented as of this encounter Plan of Treatment Upcoming Encounters Date Type Department Care Team (Late st Contact Info) Description 11/27/2024 1:00 PM COMMERCIAL ATTORNEY Office Visit [facility] [address] [place] [address] Yee Banegas NP [address] [facility] [address] [place] [address] 03/08/2025 12:45 PM CDT Office Visit [facility] Heart and Vascular - [facility] [address] [place] [address] Kevin Ashley MD [address] [facility] [address] [place] [address] documented as of this encounter Visit Diagnoses Not on filedocumented in this encounter Care Teams News Commentator Relationship Specialty Start Date End Date Donald Guerrero MD [address] [place] [address] [address] [place] [address] PCP - General Internal Medicine 09/23/20 documented as of this encounter
--- OUTSIDE RECORDS SUMMARY | 2024-11-13 13:19 | XMS_ITS | Encounter Summary ---
Author Organization [facility] Address [address] [place] [address] Care Team Providers Care Para Operator Name Role Phone Donald Guerrero MD Primary Care Provider Encounter Details Date Type Department Care Team (Late st Contact Info) Description 02/02/2008 Outpatient Historical [facility] Primary Care - [address] [place] [address] Elda Mart MD [address] [place] [address] [place] [address] Social History Tobacco Use Types Packs/Day Years Used Date Smoking Tobacco: Never Assessed Sex and Gender Information Value Date Recorded Sex Assigned at Not on file Legal Sex Male 4:28 AM MANAGER CREATIVE Gender Identity Not on file Sexual Orientation [...] Contact Info) Description 11/27/2024 1:00 PM MANAGER CREATIVE Office Visit [facility] Primary Care - [facility] [address] [place] [address] Yee Banegas NP [address] [place] [address] 03/08/2025 12:45 PM CDT Office Visit [facility] Heart and Vascular - [facility] [address] [place] [address] Kevin Ashley MD [address] [facility] [address] [place] [address] documented as of this encounter Visit Diagnoses Not on filedocumented in this encounter Care Teams Para Operator Relationship Specialty Start Date End Date Donald Guerrero MD [address] [place] [address] PCP - General Internal Medicine 09/23/20 documented as of this encounter
--- OUTSIDE RECORDS SUMMARY | 2024-11-13 13:19 | XMS_ITS | Encounter Summary ---
Author Organization [facility] Address 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 LAST VISIT: 06/13/07 PCP: sofia. ALTERNATIVE PHONE NUMBER: [phone] WHO CALLED: Patient called. CURRENT ALLERGY LIST: [...] st Contact Info) Description 11/27/2024 1:00 PM TRIBUNAL MEMBER Office Visit [facility] Primary Care - [facility] [address] [facility] [address] [place] [phone] Yee Banegas NP [address] [facility] [address] [place] [address] 03/08/2025 12:45 PM CDT Office Visit [facility] Heart and Vascular - [facility] [address] [facility] [address] [place] [address] Kevin Ashley MD [address] [facility] [address] [place], [place] [phone] documented as of this encounter Visit Diagnoses Not on filedocumented in this encounter Care Teams Tire Spotter Relationship Specialty Start Date End Date Donald Guerrero MD [address] [place] [address]. [address] [place] [address] PCP - General Internal Medicine 09/23/20 documented as of this encounter
--- OUTSIDE RECORDS SUMMARY | 2024-11-13 13:19 | XMS_ITS | Encounter Summary ---
Author Organization [facility] Address [address] [place] [address] Care Team Providers Care It Program Manager Name Role Phone Donald Guerrero MD Primary Care Provider Encounter Details Date Type Department Care Team (Late st Contact Info) Description 06/13/2007 Orders Only [facility] Primary Care - [address] [place] [address] Sarbjit Benson MD [address] [facility] [address] [place] [address] Social History Tobacco Use Types Packs/Day Years Used Date Smoking Tobacco: Never Assessed Sex and Gender Information Value Date Recorded Sex Assigned at Not on file 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 [place] [address] [facility] [address] [place] [phone] Yee Banegas NP [address] [address] [place] [address] 03/08/2025 12:45 PM CDT Office Visit [facility] Heart and Vascular - [facility] [place] [address] [facility] [address] [place] [address] Kevin Ashley MD [address] [facility] [address] [place], [place] [phone] documented as of this encounter Visit Diagnoses Not on filedocumented in this encounter Care Teams It Program Manager Relationship Specialty Start Date End Date Donald Guerrero MD [address] [facility] [place] [address] PCP - General Internal Medicine 09/23/20 documented as of this encounter
--- OUTSIDE RECORDS SUMMARY | 2024-11-13 13:19 | XMS_ITS | Encounter Summary ---
Author Organization [facility] Address 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 Gender Identity Not on file Sexual Orientation Not on file documented as of this encounter Plan of Treatment Upcoming Encounters Date Type Department Care Team (Late st Contact Info) Description 11/27/2024 1:00 PM STRIP MACHINE OPERATOR Office Visit [facility] Primary Care - [facility] [address] [facility] [address] [place] [address] Yee Banegas NP [address] [facility] [address] [place] [address] 03/08/2025 12:45 PM CDT Office Visit [facility] Heart and Vascular - [facility] [address] [place] [address] Kevin Ashley MD [address] [facility] [address] [place] [address] documented as of this encounter Procedures Procedure Name Priority Date/Time Associated Diagnosis Comments XR TIBIA AND FIBULA 2 VW LEFT Routine 02/02/2008 2:19 PM CDT documented in this encounter Results * XR TIBIA AND FIBULA 2 VW LEFT (02/02/2008 2:19 PM CDT) Anatomical Region Laterality Modality Lower Extremity Other 02/02/2008 2:19 PM CDT Narrative 02/03/2008 2:57 PM CDT [address] [address] Admit Date: 02/02/2008 JOHNNY MATTHEW Sex: M Admit Prov: JORGE KEYES Date: 1955 Primary Care Prov: JORGE KEYES CMRN: [id number] Room: [facility] SSN: [id number] IMAGING SERVICES Ordering Prov: N/A Accession Number: [id number] Interpretation Exam: Left tibia and fibula 2 views 02/02/2008 History: Leg injury. Patient with leg pain. Findings: No fracture, dislocation, focal bone production or destruction is identified. Impression: Negative. . Dictated by: AMANDEEP DUFFY 02/02/2008 15:31 Electronically signed by: AMANDEEP DUFFY 02/03/2008 14:57 Transcribed: 02/02/2008 17:11 AMK Procedure Note Amandeep Duffy - 02/03/[address] [address] Admit Date: 02/02/2008 JOHNNY MATTHEW Sex: M Admit Prov: JORGE KEYES Date:1955 Primary Care Prov: MICHAEL KEYESA CMRN: [id number] Room: [facility] SSN: [id number] IMAGING SERVICES Ordering Prov: N/A Interpretation Exam: [...] foot documented in this encounter Care Teams Manager Pool Relationship Specialty Start Date End Date Donald Guerrero MD [address] [facility] [address] [place] [address] PCP - General Internal Medicine 09/23/20 documented as of this encounter
--- NOTE | 2024-11-13 13:53 | PC.NURSE ---
Pt. taken to bathroom via WC. Pt able to stand to pivot independently.
--- NOTE | 2024-11-13 14:20 | PC.NURSE ---
Knee immobilizer applied-patient declined fitting/use of crutches MD is aware
[2024-11-13 14:27] VITALS: BP 138/93; PULSE 83; RESP 16; TEMP 36.5; O2SAT 97
== END 2024-11-13 14:29 | disposition home or self-care (01) ==
PROVIDERS: Emergency Provider Student in an Organized Health Care Education/Training Program
DX: M25.561 Pain in right knee (principal); S76.301A Unspecified injury of muscle, fascia and tendon of the posterior muscle group at thigh level, right thigh, initial encounter; X50.0XXA Overexertion from strenuous movement or load, initial encounter
CPT/HCPCS: 76882; 99284